=== PATIENT | male | born 1945 | race Caucasian/White ===

== ENCOUNTER 2017-07-17 06:46 | Inpatient (IN) | payer MEDICARE, BC ==
--- NOTE | 2017-07-04 15:53 | HP ---
HISTORY AND PHYSICAL: DATE OF SURGERY: 07/17/17 SURGEON: Susu Mullins MD * (DICTATED BY FRANCISCO MANNING) PROCEDURE: Left total knee arthroplasty. CHIEF COMPLAINT: Left knee pain. HISTORY OF PRESENT ILLNESS: Mr. Tracy is a 71-year-old gentleman with continued complaints of left knee pain secondary to advanced osteoarthritis. He has failed conservative management and has elected to proceed with a left total knee arthroplasty, which is scheduled for 07/17/[address] Mullins. PAST MEDICAL HISTORY: 1. Coronary artery disease. 2. Hypertension. 3. Cardiac arrhythmia. 4. History of DVT with positive lupus anticoagulant drug test. 5. High cholesterol. 6. Sleep apnea. 7. Basal cell carcinoma. PAST SURGICAL HISTORY: 1. Left total hip arthroplasty. 2. Left knee arthroscopy. 3. Cardiac stents. 4. Cardiac ablation. 5. Appendectomy. CURRENT MEDICATIONS: 1. Lipitor. 2. Multivitamin. 3. Toprol. 4. Ramipril. 5. Uroxatral. 6. Saw palmetto. 7. Aspirin. 8. Hydroxyzine. 9. Coumadin. 10. Norvasc. 11. [place]-3. ALLERGIES: No known drug allergies. FAMILY HISTORY: Hypertension and heart disease. SOCIAL HISTORY: He is a 71-year-old gentleman who lives with his . He does not smoke, use drugs, or alcohol. REVIEW OF SYSTEMS: A complete 14-point review of systems is reviewed with the patient, is positive for history of 2 prior DVTs. PHYSICAL EXAMINATION GENERAL: He is well developed, well nourished, in no acute distress. VITAL SIGNS: He stands 6 feet 3 inches tall, weighs 290 pounds. His blood pressure is 150/76, his heart rate is 44. HEENT: Normocephalic, atraumatic. NECK: Supple. No palpable lymph nodes. PULMONARY: Lungs are clear to auscultation bilaterally. CARDIO: Regular rate and rhythm. Strong S1, S2. ABDOMEN: Soft, nontender, nondistended. NEUROLOGIC: Alert and oriented x3. Cranial nerves II through XII are intact. MUSCULOSKELETAL: Left lower extremity, skin is intact. There are no open wounds or abrasions. 10 to 120 degrees flexion with patellofemoral crepitus. 2 + dorsalis pedis pulses. Lower extremity muscle strengths are intact at 5/5. He has intact sensation. ASSESSMENT AND PLAN: Mr. Tracy is a 71-year-old gentleman with complaints of left knee pain secondary to advanced osteoarthritis. He has failed conservative management and has elected to proceed with a left total knee arthroplasty, which is scheduled for 07/17/[address] Mullins discussed the risks and the benefits of the surgery at today's visit and all of his questions were answered. He is currently on 5 mg of Coumadin daily. He will stop this a week prior to the surgery and bridge with Lovenox 30 mg subcu daily up until 24 hours prior to the surgery. Percocet and Colace were sent to his pharmacy for postoperative pain control. He will follow up with Dr. Mullins 2 weeks after the surgery. FRANCISCO MANNING [id number]/[facility] #: [id number] MTDD
[~2017-07-17 06:46] MED LIST: Buffered Lidocaine 0.9% SYRIN* 5 ML/SYR SYRINGE INTRADERM ONE; Gabapentin CAP(*) 300 MG PO ONE
[2017-07-17] MEDS ORDERED: Gabapentin CAP(*) 300 MG ONE (07:08)
[2017-07-17] MEDS ORDERED: ceFAZolin 2 GM PREMIX (*) 50 ML IVPB ONE (07:08)
[2017-07-17] MEDS ORDERED: Bupivacaine 0.5% SDV PF* 30 ML VIAL ONE ×2 (07:14→08:31)
[2017-07-17] MEDS ORDERED: ceFAZolin 1 GM* X ONE DOSE IVPB ×2 (07:30)
[2017-07-17] MEDS ORDERED: Midazolam* 1 MG/ML 5 ML VIAL (5 MG) ONE (08:08)
[2017-07-17] MEDS ORDERED: fentaNYL* 50 MCG/ML 2 ML VIAL (100 MCG VIAL) ONE (08:08)
[2017-07-17] MEDS ORDERED: Sodium Bicarbonate 8.4% SYR* 10 ML SYRINGE ONE (08:12)
[2017-07-17] MEDS ORDERED: Naloxone* 0.4 MG/ML 1 ML VIAL IV PRN (08:30)
[2017-07-17] MEDS ORDERED: DiMENhydriNATE IV* 50 MG/ML VIAL IV PUSH PRN ×2 (08:30→09:12)
[2017-07-17] MEDS ORDERED: Lidocaine 2% EPI 1:200000 MPF* 20 ML VIAL ONE (08:31)
[2017-07-17] MEDS ORDERED: Morphine PF AMP (0.5MG/ML)* 5 MG/10 ML AMP ONE (08:31)
[2017-07-17] MEDS ORDERED: Midazolam* 1 MG/ML 10 ML VIAL (10 MG) ONE (09:03)
[2017-07-17] MEDS ORDERED: Ondansetron INJ* 2 MG/ML VIAL IV PRN (09:12)
[2017-07-17] MEDS ORDERED: fentaNYL* 50 MCG/ML 2 ML VIAL (100 MCG VIAL) IV PRN (09:12)
[2017-07-17] MEDS ORDERED: HYDROmorphone INJ* 1 MG/ML CARPUJECT SYRINGE IV PRN (09:12)
[2017-07-17] MEDS ORDERED: Polyethylene Glycol 3350* 17 GM PACKET PO PRN (11:13)
[2017-07-17] MEDS ORDERED: Acetaminophen TAB* 325 MG PO PRN (11:13)
[2017-07-17] MEDS ORDERED: Bisacodyl SUPP* 10 MG SUPP PR PRN (11:13)
[2017-07-17] MEDS ORDERED: Magnesium Hydroxide LIQ* 30 ML UDC PO PRN (11:13)
--- NOTE | 2017-07-17 12:28 | RAD ---
HISTORY: Status post left knee arthroplasty COMPARISONS: April 30, 2017 VIEWS: 2, Frontal and lateral views of the left knee FINDINGS: BONE DENSITY: Normal. BONES: The patient is status post left knee arthroplasty. There is no hardware failure or osteolysis. JOINTS: The patient is status post left knee arthroplasty. ALIGNMENT: There is no dislocation. SOFT TISSUES: There is postsurgical change to the soft tissues OTHER FINDINGS: None. IMPRESSION: STATUS POST LEFT KNEE ARTHROPLASTY
[2017-07-17 13:10] LABS: BUN/Creatinine Ratio 10.2 (8-20); Calcium 8.4 mg/dL (8.6-10.3); EGFR African American 43.1 (>60); EGFR Non-African American 33.5 (>60); Magnesium 1.8 mg/dL (1.9-2.7); Potassium 4.5 mmol/L (3.5-5.0)
[2017-07-17] MEDS ORDERED: Magnesium Sulfate 2 GM IV* 2 GM/50 ML BAG IVPB ONE (13:24)
[2017-07-17] MEDS: oxyCODONE/Acetamin 5/325 MG* TAB PO PRN ×2 (16:12→22:29)
[2017-07-17] MEDS: ceFAZolin 1 GM VIAL(*) 1 GM in NS 0.9% 50 ML* 50 ML IVPB SCH ×2 (16:13→23:58)
[2017-07-17] MEDS: Metoprolol Succinate XL TAB* 100 MG PO SCH (16:51)
[2017-07-17] MEDS ORDERED: Warfarin TAB(*) 10 MG PO ONE (17:00)
--- NOTE | 2017-07-17 17:56 | CONS ---
CC: KAYKAY Titus; Dr. Mullins* MEDICAL CONSULTATION REPORT: DATE OF CONSULT: 07/17/17 PRIMARY CARE PROVIDER: KAYKAY Titus. PRIMARY AIRCRAFT SERVICER: Dr. Knight. REQUESTING PROVIDER: Dr. Susu Mullins. CONSULTING PROVIDER: FRANCISCO Wade SUPERVISING PHYSICIAN: Dr. Mayelin Bustamante. CHIEF COMPLAINT: Status post left total knee arthroplasty with hospitalist group asked for medical consultation. 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 Mullins earlier today. Hospitalist group was asked to consult for medical comanagement. The patient was seen by both his primary care provider and surgical services assistant prior to today's procedure. Dr. Knight, Cardiology, recommended a repeat nuclear stress testing prior to surgery, which was completed. Stress test was read by Radiology to be a high risk study with apical and septal infarct with lizy- infarct ischemia. Images were reviewed by Dr. Knight who felt that they were similar to his prior stress test and known area of infarct and did not recommend any changes to medical management or repeat cardiac catheterization prior to procedure. The patient is chronically anticoagulated on Coumadin for a history of recurrent DVTs. His first DVT was associated with a long car trip and his second DVT was in 2012 after a hip surgery. He has been anticoagulated with Coumadin since and has known lupus anticoagulant antibody placing him at high risk for future DVTs. The patient has held his Coumadin for approximately a week prior to surgery. INR this morning was 0.9. He did receive Lovenox but in prophylactic dosings at 30 mg once daily as a form of bridging with his last dose being Sunday evening, which was just greater than 24 hours preoperatively. The patient states that he took his ramipril this evening. His takes his metoprolol and amlodipine in the evenings and took those yesterday evening. He reports that he is compliant with CPAP at home and denies any recent illness. He has had a significant decline in exercise tolerance over the last several months but relates this to limitations from his knee pain and not limitation secondary to chest pain or shortness of breath. The patient's evaluation in the recovery period, the patient denies any chest pain, shortness of breath, abdominal pain, nausea, or vomiting. He has no surgical site pain and underwent spinal anesthesia. PAST MEDICAL HISTORY: 1. Stage 3 chronic kidney disease. 2. Recurrent DVTs with positive lupus anticoagulant antibody. 3. Coronary artery disease, status post PCI to the LAD in 2012. 4. Hyperlipidemia. 5. Obstructive sleep apnea, compliant with CPAP. 6. Obesity with a BMI of 36. 7. History of AFib, status post cardioversion several years ago and has maintained a sinus rhythm since. PAST SURGICAL HISTORY: 1. Left total hip arthroplasty. 2. Left knee arthroscopy. 3. PCI in 2012. 4. Cardioversion in 2008. 5. Appendectomy. HOME MEDICATIONS: 1. Uroxatral 10 mg extended release p.o. daily. 2. Aspirin 81 mg p.o. daily. 3. Lipitor 40 mg p.o. daily. 4. Lovenox 30 mg subcu daily ending 07/15/17. 5. Metoprolol succinate 50 mg p.o. each evening. 6. Multivitamin 1 tablet p.o. daily. 7. Fish oil 600 mg p.o. daily. 8. Ramipril 10 mg p.o. daily. 9. Amlodipine 5 mg p.o. daily. 10. Hydroxyzine 25 mg p.o. at bedtime. SOCIAL HISTORY: The patient lives at home with his . No smoking history. Regular alcohol consumption. REVIEW OF SYSTEMS: As noted above in HPI. All other systems reviewed and otherwise negative. PHYSICAL EXAMINATION: Most recent vitals, temperature 97.2 degrees Fahrenheit, pulse 67 beats per minute, respiratory rate 18 per minute, oxygen saturation 93 % on room air, blood pressure 120/68 mmHg. General: This is a very pleasant, elderly gentleman who is lying comfortably in the recovery area and in no acute distress. HEENT: Head is normocephalic, atraumatic. Mucous membranes are pink and moist. Cardiovascular: Heart has a regular rate and rhythm without murmurs , rubs, or gallops. Respiratory: Lungs are clear to auscultation. Abdomen: Soft and nontender to palpation. Extremities: No right lower extremity edema. Left lower extremity is wrapped in a postsurgical dressing that is clear and intact. Psych: The patient is alert and appropriately oriented. Slightly lethargic. Skin: Limited exam shows no concerning rashes or lesions. LABORATORY EVALUATION: Labs from 06/19/17 including a CBC and comprehensive metabolic panel were reviewed. CBC was within normal limits with a hemoglobin of 14.9 g/dL. Metabolic panel showed BUN of 31 and creatinine of 2.23, both of which are slightly above his baseline giving him estimated GFR of just less than 30. INR from this morning of 0.91. Repeat basic metabolic panel performed postoperatively shows an improved BUN down to 20, creatinine 1.97 with an estimated GFR of 33.5 and creatinine clearance of 62.5. Electrolytes are otherwise within normal limits with the exception of magnesium, which is slightly low at 1.8. IMAGIN. Nuclear stress test from earlier this month is read as a high risk study with apical and septal infarct and lizy-infarct ischemia. 2. Echocardiogram from 2014 shows an EF of 50% to 55%. 3. Cardiac cath from 2012 showed critical stenosis of the LAD, which was stented with a drug-eluting stent at that time. 4. Chest x-ray shows no acute process. 5. Preop EKG shows bigeminy. 6. Bedside telemetry monitoring demonstrates frequent PVCs. ASSESSMENT AND PLAN: This is a 71-year-old gentleman who underwent elective left total knee arthroplasty with Dr. Mullins earlier today and hospitalist group has been asked to comanage chronic medical problems, which include stage 3 chronic kidney disease, recurrent deep venous thrombosis with lupus anticoagulant antibody, coronary artery disease, hypertension, obstructive sleep apnea, obesity, and a remote history of atrial fibrillation. The patient is chronically anticoagulated due to his history of deep venous thrombosis with Coumadin, which has been held preoperatively. 1. Status post left total knee arthroplasty - postoperative management will be deferred to orthopedic surgery group. Please see discussion below for DVT prophylaxis recommendations. 2. Recurrent deep venous thrombosis with lupus anticoagulant antibody - this patient is at high risk for recurrent deep venous thrombosis postoperatively. He is chronically anticoagulated with Coumadin, which has been interrupted for a week now and INR has returned to normal at 0.9 measured this morning. He is obese, but below maximum recommended weight based dosing. His renal function preoperatively was worse than baseline, but repeat this morning shows estimated GFR of greater than 30 and a creatinine clearance of greater than 60, and for these reasons, would be eligible for full dose Lovenox therapy as a bridge back to Coumadin and this would be the recommended course of action for this patient. Specifically, we would recommend resuming Lovenox at a dose of 130 mg twice daily on postoperative day 1 or when determined to be appropriate by Orthopedic Surgery in conjunction with restarting his Coumadin. 3. Frequent premature ventricular contractions - the patient is noted to have numerous premature ventricular contractions on telemetry monitoring while examined in PACU. A basic metabolic panel and magnesium were drawn and reviewed. He is slightly hypomagnesemic and will be bolused with 2 g at this time. He is otherwise asymptomatic and recommend giving him his usual metoprolol this evening. 4. Coronary artery disease - the patient had an LAD stent in 2012, chronically followed by Dr. Knight and the patient has been asymptomatic from a cardiac perspective for quite some time. His preop stress test was read as high risk by Radiology but reviewed by Cardiology, felt that it was appropriate to proceed with his planned knee replacement without need to undergo cardiac catheterization prior. We will plan to continue with his medical management. 5. Obstructive sleep apnea - the patient is compliant with CPAP at home. He states that he had used nasal cannula after his last surgery and felt that he did well with that and would prefer not to use CPAP postoperatively. I explained to him that the postoperative period is the most critical in terms of respiratory depression and complications from obstructive sleep apnea and CPAP would be recommended as is his typical treatment. This has been ordered for him. 6. Obesity with a BMI of 36. 7. Hyperlipidemia. 8. Code status: The patient is full code. 9. Healthcare proxy is his . 10. DVT prophylaxis per Orthopedic Surgery, discussion noted above. FRANCISCO WADE [id number]/[facility] #: [id number] NATALIE
--- NOTE | 2017-07-17 18:11 | PN ---
Hospitalist Progress Note Discussed anticoagulation recommendations in more detail with Dr Mullins. She has concerns about hematoma formation with FD Lovenox. Discussed the idea of "intermediate dosing" outlined by UTD under anticoagulation bridging for patients with a need for bridging but the bleeding concern is higher. Recommended intermediate dosing would be 40mg SQ bid. Dr Mullins was in agreement with that dosing protocol. Coumadin has been restarted and INR will be monitored daily.
[2017-07-17] MEDS: Atorvastatin* 40 MG TAB PO SCH (21:12)
[2017-07-17] MEDS: Docusate CAP* 100 MG PO SCH (21:12)
[2017-07-17] MEDS: hydrOXYzine HCL TAB* 25 MG PO SCH (21:12)
[2017-07-18] MEDS ORDERED: diPHENhydraMINE IV* 50 MG/ML 1 ml VIAL (BENADRYL) IV PRN (00:30)
[2017-07-18] MEDS ORDERED: Morphine INJ* 2 MG/ML 1 ML CARPUJECT IV PRN (00:30)
[2017-07-18] MEDS ORDERED: Ondansetron TAB* 4 MG PO PRN (00:30)
[2017-07-18 05:12] LABS: Hematocrit 34 % (42-52); Hemoglobin 11.4 g/dl (14.0-18.0)
--- NOTE | 2017-07-18 05:28 | OP ---
OPERATIVE NOTE: DATE OF OPERATION: 07/17/17 DATE OF : 41 ATTENDING SURGEON: Susu Mullins MD MANAGER MARITIME: FRANCISCO Lema Ms. did help throughout the procedure with preparation of the leg, wound retraction, manipulation of the knee and wound closure. ANESTHESIOLOGIST: David Montoya MD ANESTHESIA TYPE: Spinal. PRE-OP DIAGNOSIS: Severe degenerative osteoarthritis of the left knee joint. POST-OP DIAGNOSIS: Severe degenerative osteoarthritis of the left knee joint. PROCEDURE PERFORMED: Left total knee arthroplasty. TOURNIQUET TIME: 54 minutes. COMPLICATIONS: None. ESTIMATED BLOOD LOSS: 100 cc. SPECIMEN: Bone and cartilage from the left knee joint, sent to pathology. HARDWARE USED: A cemented Her and Nephew total knee arthroplasty hardware. Two packages of Simplex bone cement were used. For the femur, a size 8 left posterior stabilized Legion Oxinium femoral component. For the tibia, a size 7 left tibial baseplate. For the insert, a 9 mm posterior stabilized articular insert. For the patella, a 41-mm 3-peg all poly patella. BRIEF HISTORY/ INDICATIONS: Mr. Tracy is a 71-year-old gentleman with years of severe left knee pain. He failed conservative treatment with antiinflammatories , pain medication, intraarticular injections and physical therapy. Due to continued pain and decreased quality of life, he elected to undergo left total knee arthroplasty. Informed consent was obtained from the patient. He understood the risks of the surgery, included but not limited to bleeding, infection, damage to nearby structures, continued pain, need for further surgery , intraoperative fracture, nerve palsy, hardware failure or loosening, knee stiffness, loss of motion, stroke, heart attack, blood clot and . He wished to proceed. INTRAOPERATIVE FINDINGS: Intraoperatively, the patient had tri-compartmental full thickness loss of cartilage. DESCRIPTION OF PROCEDURE: Mr. Tracy was identified in the preanesthesia unit. His left lower extremity was marked as the correct operative site. Informed consent was signed and placed in the chart. The patient was taken to the operating room and placed under spinal anesthesia. A Tellez catheter was placed. Tourniquet was placed on the left thigh. Left lower extremity was prepped and draped in the usual sterile fashion. Preop time-out was made to correctly identify the patient's side and site. Appropriate perioperative antibiotics were given within 1 hours of incision. Tourniquet was inflated and total tourniquet time for this procedure was 54 minutes. A 15-cm midline incision was made with a 10 blade and carried down to the extensor mechanism. A new 10 blade was used to make a standard medial parapatellar arthrotomy. Patella was subluxed laterally. Electrocautery was used to subperiosteally elevate soft tissue off the superomedial tibia to the midsagittal plain. The knee was flexed up. Anterior horn with lateral meniscus and ACL were sharply released. A drill was used to enter the distal femur. Intramedullary distal femoral cutting guide was pinned into proper position. An oscillating saw was used to make the appropriate distal femoral cut. Next, the external rotation guide was pinned on the distal femur. The distal femur was sized to a size 8. Size 8 multi-cutting jig was pinned on the distal femur. The oscillating saw was used to make the appropriate chamfer cuts. The PCL was completely released. The tibia was subluxed anteriorly. Extramedullary tibial cutting guide was pinned on the proximal tibia. The oscillating saw was used to make the appropriate proximal tibial cut. The bone was carefully removed. The knee was brought into full extension. A spacer block was placed with the knee in full extension. There was good medial and lateral ligamentous balancing. Flexion and extension gaps were well balanced. The knee was flexed up. Lamina kids activities coach was placed both medially and laterally. Any remaining meniscus was carefully removed using electrocautery. A curved osteotome was used to remove posterior osteophytes. A tibial tray and drop zahira were placed and once again confirmed satisfactory proximal tibial cut. This was confirmed. A size 8 left femoral trial was impacted on to the distal femur and had good fit. The box for the posterior stabilized implant was prepared using a reamer and box cut osteotome. Trial size 7 tibial tray with a 9-mm insert trial was placed. The knee was taken through range of motion and had full extension to 130 degrees of flexion. There was good patellofemoral tracking. The patella was everted. A 9 mm of patellar bone and cartilage were carefully removed with an oscillating saw. The patella was sized to a size 41. Size 41 patella was chosen. The 3 peg holes were drilled through the size 41 guide. The trial 41 patella was placed. The knee was taken through a range of motion. There was satisfactory patellofemoral tracking. All trials were carefully removed. The tibia was subluxed anteriorly and sized to a size 7. The proximal tibia was prepared using the size 7 keel punch. All bony cut surfaces were copiously irrigated with sterile saline and dried. The final implants were cemented into place starting with the tibia followed by the femur and last the last patella. A 9 mm insert trial was placed and the knee was brought into full extension. Tourniquet was turned down at 54 minutes. The cement was fully cured. The knee was copiously irrigated with sterile saline. Once the cement had fully cured, the insert trial was removed. Any excess cement was carefully removed from around the hardware and capsule. Electrocautery was used to obtain meticulous hemostasis. Final inset chosen was a 9 mm posterior stabilized insert. This was locked into position on the tibial tray. Stability of the insert was checked and rechecked and noted to be stable. The extensor mechanism was closed over a medium Hemovac drain using interrupted #1 Vicryls. The rest of the incision was closed in a layered fashion using 0 and 2-0 Vicryls. The skin was closed using running 3-0 nylon suture. Sterile Xeroform, 4x4's and Webril were placed over the incision. Yony wrap and cold pack were placed over this. The patient's anesthesia was reversed without difficulty. He was taken to the PACU in stable condition. Intended weightbearing will be weightbearing as tolerated. Intended DVT prophylaxis will be Coumadin with the Lovenox bridge. [id number]/[facility] #: [id number] [facility]
[2017-07-18 05:30] LABS: BUN/Creatinine Ratio 11.9 (8-20); Calcium 8.4 mg/dL (8.6-10.3); EGFR African American 42.1 (>60); EGFR Non-African American 32.7 (>60); Potassium 4.6 mmol/L (3.5-5.0)
[2017-07-18] MEDS: oxyCODONE/Acetamin 5/325 MG* TAB PO PRN ×4 (06:01→22:05)
[2017-07-18] MEDS: ceFAZolin 1 GM VIAL(*) 1 GM in NS 0.9% 50 ML* 50 ML IVPB SCH (07:48)
[2017-07-18] MEDS: Enoxaparin(*) 40 MG/0.4 ML SYR SUBCUT SCH ×2 (07:48→22:05)
[2017-07-18] MEDS: amLODIPine TAB* 5 MG PO SCH (07:48)
[2017-07-18] MEDS: oxyCODONE TAB* 5 MG TAB PO PRN ×2 (07:48→12:41)
[2017-07-18] MEDS: Prenatal Vitamin TAB PO SCH (07:48)
[2017-07-18] MEDS: Docusate CAP* 100 MG PO SCH ×2 (07:49→22:05)
[2017-07-18] MEDS: Alfuzosin ER (NF) 10 MG TAB.ER PO SCH (07:49)
[2017-07-18] MEDS ORDERED: Ondansetron INJ* 2 MG/ML VIAL IV PRN (08:30)
[2017-07-18] MEDS ORDERED: Enoxaparin(*) 100 MG/ML SYR SUBCUT SCH (09:00)
[2017-07-18] MEDS ORDERED: Ramipril CAP* 5 MG PO SCH (09:00)
--- NOTE | 2017-07-18 11:52 | PN ---
Progress Note - Progress Note Date of Service: 07/18/17 SOAP: Subjective: []Patient seen at bedside. Pain well managed, hoping to get some rest this afternoon. Denies SOB, CP or dizziness. Objective: [] Vital Signs Temp 97.7 F 07/18/17 07:20 Pulse 51 07/18/17 07:20 Resp 18 07/18/17 10:23 BP 127/47 07/18/17 07:20 Pulse Ox 96 07/18/17 07:20 Intake & Output 07/17/17 07/18/17 07/18/17 18:59 06:59 18:59 Intake Total 3750 2043 240 Output Total 800 1475 0 Balance 2950 568 240 Weight 291 lb Intake: IV Fluids 2550 893 3G CEFAZOLIN 100 LR 2450 893 Oral 1200 1150 240 Output: Tellez 800 1475 0 Other: Estimated Blood Loss 200 Comment Laboratory Results - last 24 hr 07/17/17 07/18/17 07/18/17 12:30 04:48 04:48 Hgb 11.4 L Hct 34 L INR (Anticoag Therapy) 0.99 Sodium 138 Potassium 4.5 Chloride 110 Carbon Dioxide 24 Anion Gap 4 BUN 20 Creatinine 1.97 H Est GFR ( Amer) 43.1 Est GFR (Non-Af Amer) 33.5 BUN/Creatinine Ratio 10.2 Glucose 94 Calcium 8.4 L Magnesium 1.8 L 07/18/17 04:48 Hgb Hct INR (Anticoag Therapy) Sodium 135 Potassium 4.6 Chloride 105 Carbon Dioxide 26 Anion Gap 4 BUN 24 Creatinine 2.01 H Est GFR ( Amer) 42.1 Est GFR (Non-Af Amer) 32.7 BUN/Creatinine Ratio 11.9 Glucose 116 H Calcium 8.4 L Magnesium Left knee CONSUELO is dry and intact, hemovac drain discontinued this am by Dr. Mullins , no complications, tip intact calf NT +DF/PF left ankle sensation intact distally Assessment: []s/p Left total knee arthroplasty POD #1 Plan: []PT/OT WBAT LLE Coumadin with Lovenox bridge- 8 mg today Possible discharge home
--- NOTE | 2017-07-18 15:25 | PN ---
Subjective Date of Service: 07/18/17 Interval History: POD#1. Patient reports tolerable pain, no n/v/d. No c/o CP, SOB or palpitations. Objective Active Medications: Acetaminophen (Tylenol Tab*) 650 mg PO Q4H PRN PRN Reason: PAIN OR TEMPERATURE Alfuzosin HCl (Uroxatral (Nf)) 10 mg PO QAM [facility] Last Admin: 07/18/17 07:49 Dose: Not Given Amlodipine Besylate (Norvasc Tab*) 5 mg PO QAM [facility] Last Admin: 07/18/17 07:48 Dose: 5 mg Atorvastatin Calcium (Lipitor*) 40 mg PO 2100 [facility] Last Admin: 07/17/17 21:12 Dose: 40 mg Bisacodyl (Dulcolax Supp*) 10 mg NC DAILY PRN PRN Reason: constipation Diphenhydramine HCl (Benadryl Iv*) 12.5 mg IV Q6H PRN PRN Reason: PRURITIS Docusate Sodium (Colace Cap*) 100 mg PO BID [facility] Last Admin: 07/18/17 07:49 Dose: 100 mg Enoxaparin Sodium (Lovenox(*)) 40 mg SUBCUT Q12H [facility] Last Admin: 07/18/17 07:48 Dose: 40 mg Hydroxyzine HCl (Atarax Tab*) 25 mg PO BEDTIME [facility] Last Admin: 07/17/17 21:12 Dose: 25 mg Lactated Ringer's (Lactated Ringers 1000 Ml Bag*) 1,000 mls @ 100 mls/hr IV PER RATE [facility] Last Admin: 07/18/17 00:03 Dose: 100 mls/hr Lactulose (Lactulose*) 30 ml PO Q6H PRN PRN Reason: constipation Magnesium Hydroxide (Milk Of Magnesia Liq*) 30 ml PO Q6H PRN PRN Reason: constipation Metoprolol Succinate (Toprol Xl Tab*) 50 mg PO QPM [facility] Last Admin: 07/17/17 16:51 Dose: 50 mg Morphine Sulfate (Morphine Inj (Syringe)*) 2 mg IV Q2H PRN PRN Reason: PAIN Multivitamins ( Vitamin Tab*) 1 tab PO QAM [facility] Last Admin: 07/18/17 07:48 Dose: 1 tab Ondansetron HCl (Zofran Inj*) 4 mg IV Q6H PRN PRN Reason: nausea Ondansetron HCl (Zofran Tab*) 4 mg PO Q6H PRN PRN Reason: NAUSEA Oxycodone HCl (Roxycodone Tab*) 10 mg PO Q4H PRN PRN Reason: SEVERE PAIN Last Admin: 07/18/17 12:41 Dose: 10 mg Oxycodone/Acetaminophen (Percocet 5/325 Tab*) 1 tab PO Q3H PRN PRN Reason: PAIN - MODERATE Last Admin: 07/18/17 06:01 Dose: 1 tab Oxycodone/Acetaminophen (Percocet 5/325 Tab*) 2 tab PO Q3H PRN PRN Reason: PAIN - MODERATE Last Admin: 07/18/17 10:23 Dose: 2 tab Pharmacy Profile Note (Coumadin Daily Reminder*) 1 note FOLLOW UP 1700 [facility] Last Admin: 07/17/17 16:51 Dose: 1 note Polyethylene Glycol/Electrolytes (Miralax*) 17 gm PO DAILY PRN PRN Reason: Constipation Warfarin Sodium (Coumadin Tab(*)) 8 mg PO ONCE@1700 ONE PRN Reason: Protocol Stop: 07/18/17 17:01 Vital Signs: Temp Pulse Resp BP Pulse Ox 97.7 F 51 18 127/47 96 07/18/17 07:20 07/18/17 07:20 07/18/17 14:37 07/18/17 07:20 07/18/17 07:20 Oxygen Devices in Use Now: Nasal Cannula Appearance: Well appearing gentleman who appears younger than stated age in NAD Respiratory: Symmetrical Chest Expansion and Respiratory Effort, Clear to Auscultation Cardiovascular: NL Sounds; No Murmurs; No JVD, RRR Abdominal: NL Sounds; No Tenderness; No Distention Extremities: No Edema Skin: No Rash or Ulcers, - - L knee in surgical dressing Neurological: Alert and Oriented x 3 Result Diagrams: 07/18/17 04:48 07/18/17 04:48 Assess/Plan/Problems-Billing Assessment: This is a 71 yo male with CKD III, CAD, HLD, SHU, obesity, and h/o recurrent DVTs with positive lupus anticoagulant antibody who is s/p L TKA with Dr Mullins. Hospitalist group has been asked to consult for medical co-management. - Patient Problems (1) Status post total left knee replacement Comment: POD #1 Post op management per ortho (2) Recurrent deep vein thrombosis (DVT) Comment: H/o recurrent DVT with known lupus anticoagulant Ab Chronically anticoagulated with Coumadin which has been interrupted for surgery Coumadin has been resumed Bridging with intermediate dosed Lovenox at 40mg bid (3) CAD (coronary artery disease) Comment: Asx Cont medical management, resume ASA when ok'd by ortho s/p PCI 2012 (4) HLD (hyperlipidemia) Comment: Cont statin (5) SHU (obstructive sleep apnea) Comment: Compliant with CPAP (6) Obesity Comment: BMI 36 (7) Full code status (8) DVT prophylaxis Comment: Lovenox bridging to usual Coumadin Status and Disposition: Discharge per ortho. Hospitalist group will continue to follow along
[2017-07-18] MEDS ORDERED: Warfarin TAB(*) 4 MG PO ONE (17:00)
[2017-07-18] MEDS: Metoprolol Succinate XL TAB* 100 MG PO SCH (17:48)
[2017-07-18] MEDS: hydrOXYzine HCL TAB* 25 MG PO SCH (22:05)
[2017-07-18] MEDS: Atorvastatin* 40 MG TAB PO SCH (22:05)
[2017-07-19] MEDS: oxyCODONE/Acetamin 5/325 MG* TAB PO PRN (05:16)
[2017-07-19 05:43] LABS: Hematocrit 31 % (42-52); Hemoglobin 10.4 g/dl (14.0-18.0)
[2017-07-19 05:44] LABS: Comments Flag Yes
[2017-07-19] MEDS: Docusate CAP* 100 MG PO SCH (08:50)
[2017-07-19] MEDS: Prenatal Vitamin TAB PO SCH (08:51)
[2017-07-19] MEDS: Enoxaparin(*) 40 MG/0.4 ML SYR SUBCUT SCH (08:51)
[2017-07-19] MEDS: amLODIPine TAB* 5 MG PO SCH (08:51)
[2017-07-19] MEDS: Alfuzosin ER (NF) 10 MG TAB.ER PO SCH (08:52)
[2017-07-19] MEDS ORDERED: Ramipril CAP* 10 MG PO SCH (09:00)
--- NOTE | 2017-07-19 10:20 | PN ---
Progress Note - Progress Note Date of Service: 07/19/17 SOAP: Subjective: []Patient seen OOB in chair. He is frustrated because he has not been able to sleep dues to noisy floor at night. His pain is tolerable overall in the left knee. He wishes to be discharged home this morning. Objective: [] Vital Signs Temp 98.1 F 07/19/17 04:16 Pulse 70 07/19/17 04:16 Resp 16 07/19/17 07:16 BP 128/60 07/19/17 04:16 Pulse Ox 96 07/19/17 04:16 Intake & Output 07/18/17 07/19/17 07/19/17 18:59 06:59 18:59 Intake Total 1514 2420 200 Output Total 150 1300 200 Balance 1364 1120 0 Intake: IV Fluids 980 LR 980 IVPB 974 LR 866 abx 108 Oral 540 1440 200 Output: Urine 150 1300 200 Tellez 0 Other: # Bowel Movements 0 Laboratory Results - last 24 hr 07/19/17 07/19/17 05:26 05:26 Hgb 10.4 L Hct 31 L INR (Anticoag Therapy) 1.26 H Left knee dressings changed by Dr. Mullins this am, C/D/I +DF/PF left ankle calf NT neuro intact distally Assessment: []s/p Left total knee arthroplasty POD #2 Plan: []PT this am 6 mg Coumadin today before discharge follow up with Dr. Mullins as scheduled
[2017-07-19 11:07] VITALS: BP 129/57
[2017-07-19] MEDS ORDERED: Warfarin TAB(*) 6 MG PO SCH (17:00)
--- NOTE | 2017-07-20 00:54 | DS ---
AMENDED REPORT NOW INCLUDES COSIGNER DESIGNATION - ESIGNED BEFORE ADJUSTMENT DISCHARGE SUMMARY: DATE OF ADMISSION: 07/17/17 DATE OF DISCHARGE: 07/19/17 ATTENDING PHYSICIAN: Susu Mullins MD * (DICTATED BY FRANCISCO BROOKS) ADMISSION DIAGNOSIS: Severe degenerative osteoarthritis, left knee joint. DISCHARGE DIAGNOSIS: Severe degenerative osteoarthritis, left knee joint. SURGERY PERFORMED: Left total knee arthroplasty. HOSPITAL COURSE: The patient is a 71-year-old male with years of severe left knee pain. He failed conservative treatment with anti-inflammatories, pain medication, and intraarticular cortisone injections as well as physical therapy. Due to his ongoing pain, decreased activities of daily living, he elected to proceed with left total knee arthroplasty and was taken to the operating room under the care of Dr. Susu Mullins on the date of 07/17/17. He tolerated the procedure well and left the operating room in stable condition. Postoperatively, he progressed well with his physical therapy and occupational therapy goals, bearing weight as tolerated on the left lower extremity. He had no postoperative complications and was found to be stable medically and orthopedically for discharge to home on the date of 07/19/17. CONDITION ON DISCHARGE: Temperature 98.7, pulse 79, respiratory rate 16, O2 sats 96% on room air, blood pressure 129/57. Examination of his left knee, incision was benign. His calf was soft and nontender. He had active dorsiflexion and plantar flexion of the left ankle. PLAN: Discharge to home, continuing to bear weight as tolerated on the left lower extremity. He will continue with his PT/OT exercises, bearing weight as tolerated. He will continue with Coumadin for postoperative DVT prophylaxis. He was dosed with 6 mg of Coumadin on , 07/19/17 before discharge. He was instructed to take 4 mg of Coumadin on 07/20/17, 2 mg of Coumadin on 07/21/17, and 2 mg of Coumadin on 07/22/17. He will have a repeat INR draw as an outpatient as he declines visiting home nursing services. The results will be reviewed and dosages to follow from the office. He is scheduled to follow up with Dr. Mullins in the office in roughly 10 to 14 days. He will call if there is any change in his orthopedic condition including increased swelling, drainage, increased knee pain, noted increased calf pain, fever, chills. FRANCISCO BROOKS [id number]/[facility] #: [id number] MTDD
== END 2017-07-19 13:00 | disposition home or self-care (01) | DRG 470 ==
LOC: AA 06:46 → SSU 13:34
PROVIDERS: ADMIT Orthopaedic Surgery Adult Reconstructive Orthopaedic Surgery; ATTEND Orthopaedic Surgery Adult Reconstructive Orthopaedic Surgery
PROC: 0SRD0J9 Replacement of Left Knee Joint with Synthetic Substitute, Cemented, Open Approach (ICD-10-PCS; principal; 2017-07-17 08:30)
DX: M17.12 Unilateral primary osteoarthritis, left knee (principal); D68.62 Lupus anticoagulant syndrome; I48.91 Unspecified atrial fibrillation; I25.10 Atherosclerotic heart disease of native coronary artery without angina pectoris; Z96.642 Presence of left artificial hip joint; E66.9 Obesity, unspecified; E78.5 Hyperlipidemia, unspecified; G47.33 Obstructive sleep apnea (adult) (pediatric); I12.9 Hypertensive chronic kidney disease with stage 1 through stage 4 chronic kidney disease, or unspecified chronic kidney disease; I49.3 Ventricular premature depolarization; N40.0 Benign prostatic hyperplasia without lower urinary tract symptoms; M48.00 Spinal stenosis, site unspecified; M25.762 Osteophyte, left knee; Z86.718 Personal history of other venous thrombosis and embolism; Z85.828 Personal history of other malignant neoplasm of skin; Z95.5 Presence of coronary angioplasty implant and graft; Z82.49 Family history of ischemic heart disease and other diseases of the circulatory system; Z68.36 Body mass index [BMI] 36.0-36.9, adult; Z72.89 Other problems related to lifestyle
CPT/HCPCS: 36415; 80048; 83735; 85014; 85018; 85610; 86850; 86900; 86901; 94760; A9270-GY; C1776; J0690; J1650; J2250; J3010; J3475

== ENCOUNTER 2018-09-03 05:42 | Observation (INO) | payer MEDICARE, BC ==
[~2018-09-03 05:42] MED LIST changes: -Gabapentin CAP(*) 300 MG PO ONE
[2018-09-03] MEDS ORDERED: Famotidine IV* 10 MG/ML 2 ML (20 mg) IV ONE (06:00)
[2018-09-03] MEDS ORDERED: Famotidine IV* 10 MG/ML 2 ML (20 mg) ONE (06:11)
[2018-09-03] MEDS ORDERED: ceFAZolin 2 GM in NS PREMIX(*) 2 GM/100 ML BAG IVPB ONE (06:11)
[2018-09-03] MEDS ORDERED: Lidocain 1% EPI 1:100,000 * 30 ML MDV ONE (06:58)
[2018-09-03] MEDS ORDERED: Thrombin 5,000 UNITS* 1 APPLIC KIT - topical use - TOPICAL ONE (06:58)
[2018-09-03] MEDS ORDERED: Bacitracin IV* 50,000 UNITS INJ ONE (06:59)
[2018-09-03 07:01] LABS: INR 1.04 (0.77-1.02)
[2018-09-03] MEDS ORDERED: ceFAZolin 1 GM ADVAN(*) 1 GM ADDV.VIAL IVPB ONE (07:30)
[2018-09-03] MEDS ORDERED: Midazolam* 1 MG/ML 5 ML VIAL (5 MG) ONE (07:33)
[2018-09-03] MEDS ORDERED: Rocuronium* 10 MG/ML VIAL ONE (07:33)
[2018-09-03] MEDS ORDERED: fentaNYL* 50 MCG/ML 5 ML VIAL (250 MCG VIAL) ONE (07:33)
[2018-09-03] MEDS ORDERED: Succinylcholine* 20 MG/ML 10 ML VIAL ONE (08:17)
[2018-09-03] MEDS ORDERED: Dexamethasone IV* 4 MG/ML 1 ML (4 MG) ONE (08:17)
[2018-09-03] MEDS ORDERED: DiMENhydriNATE IV* 50 MG/ML VIAL ONE (08:17)
[2018-09-03] MEDS ORDERED: Propofol* 10 MG/ML 20 ML BTL IV PUSH ONE (08:17)
[2018-09-03] MEDS ORDERED: Ondansetron INJ* 2 MG/ML VIAL ONE (08:17)
[2018-09-03] MEDS ORDERED: EPHEDrine (Pressors)* 50 MG/ML VIAL ONE (08:17)
[2018-09-03] MEDS ORDERED: Glycopyrrolate IV* 0.2 MG/ML 1 ML VIAL ONE (08:17)
[2018-09-03] MEDS ORDERED: oxyCODONE TAB* 5 MG TAB PO PRN (09:06)
[2018-09-03] MEDS ORDERED: HYDROmorphone INJ1* 1 MG/ML SYRINGE IV PRN (09:06)
[2018-09-03] MEDS ORDERED: Naloxone* 0.4 MG/ML 1 ML VIAL IV PRN (09:06)
[2018-09-03] MEDS ORDERED: Acetaminophen TAB* 325 MG PO PRN ×2 (09:06→09:49)
[2018-09-03] MEDS ORDERED: DiMENhydriNATE IV* 50 MG/ML VIAL IV PUSH PRN (09:06)
[2018-09-03] MEDS ORDERED: Ondansetron INJ* 2 MG/ML VIAL IV PRN (09:49)
[2018-09-03] MEDS ORDERED: HYDROcodone/ACETAMIN 5-325 MG* 1 TAB PO PRN (09:49)
[2018-09-03] MEDS ORDERED: Magnesium Hydroxide LIQ* 30 ML UDC PO PRN (09:49)
[2018-09-03 12:01] LABS: EGFR Non-African American 29.1 (>60)
[2018-09-03] MEDS ORDERED: Magnesium Sulfate 1 GM IV* 1 GM/100 ML BAG IV ONE ×2 (12:55→19:35)
--- NOTE | 2018-09-03 13:35 | PN ---
Hospitalist Progress Note Date of Service: 09/03/18 Called to bedside for runs of VT. Patient since being placed on tele has had several 4-7 beat runs of VT. No symptoms. Denies chest pain, denie sob. Denies lightheadedness, denies loc. Lungs CTA, and Heart sounds s1 s2 RRR, States he wants to know when he can go home. Called cardiology to see patient. Will transfer to ICU for further monitoring and possible intervention. Echo ordered, ekg ordered and troponins.
--- NOTE | 2018-09-03 16:38 | ECHO ---
Patient: MANUEL QUIROGA Rec#: [id number] : 1945 Date: 09/03/2018 Age: 72y Height: 193 cm / 76.0 in Weight: 136.6 kg / 301.1 lbs Sex: M BSA: 2.64 Room#: [facility] Admit Date#: 09/03/2018 Type: Inpatient Referring: Reilly Sorenson NP Reading: Ky Knight MD Aquatics Instructor: Ashanti Weiner RDCS CC: Franco Shields Transthoracic Echocardiogram Indication: Abnormal EKG, ventricular tachycardia BP: 155/79 HR: 74 Rhythm: NSR with PVCs Findings History: CAD, s/p PCI, HLD, HTN, DVT, SHU. Technical Comments: The study is technically limited due to poor parasternal windows. Completed at 1540. Left Ventricle: The left ventricular chamber size is mildly dilated. Mild concentric left ventricular hypertrophy is observed. There is normal left ventricular systolic function. The estimated ejection fraction is 55-60%. Abnormal left ventricular diastolic function is observed. The left ventricular diastolic filling pattern is consistent with pseudonormalization. Left Atrium: The left atrium is mildly dilated. Right Ventricle: Moderator Band present. The right ventricle is mildly dilated. The right ventricular global systolic function is normal. Right Atrium: The right atrium is moderately dilated. Aortic Valve: The aortic valve is trileaflet. The aortic valve leaflets are mildly thickened. Systolic excursion of the aortic valve cusps is reduced. There is a trace of aortic regurgitation. There is mild aortic stenosis. The mean gradient of the aortic valve is 10 mmHg. The peak instantaneous gradient of the aortic valve is 18 mmHg. The aortic valve area, by peak velocities, is calculated at 1.6 cm2. The aortic valve area, by VTI's, is calculated at 1.7 cm2. Mitral Valve: There is mitral annular calcification. The mitral valve leaflets are mildly thickened. There is a trace of mitral regurgitation. There is no evidence of mitral stenosis. Tricuspid Valve: The tricuspid valve leaflets are normal. There is trace tricuspid regurgitation. Unable to estimate the right ventricular systolic pressure. There is no tricuspid stenosis. Pulmonic Valve: The pulmonic valve appears normal. There is a trace pulmonic regurgitation. There is no pulmonic stenosis. Pericardium: There is no significant pericardial effusion. A pericardial fat pad is visualized. Aorta: There is moderate dilatation of the ascending aorta. There is no dilatation of the aortic arch. The aortic root is normal in size. Pulmonary Artery: The main pulmonary artery appears normal. Venous: The inferior vena cava is dilated. There is a greater than 50% respiratory change in the inferior vena cava dimension. Conclusions Mild concentric left ventricular hypertrophy is observed. There is normal left ventricular systolic function. The estimated ejection fraction is 55-60%. The right ventricular global systolic function is normal. There is a trace of aortic regurgitation. There is mild aortic stenosis. The mean gradient of the aortic valve is 10 mmHg. There is a trace of mitral regurgitation. There is trace tricuspid regurgitation. Unable to estimate the right ventricular systolic pressure. There is no significant pericardial effusion. Compared to study of 10/20/15, the LV function is the same. The degree of is new Measurements Name Value Normal Range RVIDd (AP) 2D 4.2 cm (0.9 - 2.6) RVDdMajor (2D) 4.8 cm (2.2 - 4.4) RAd ISD 4CH 6.3 cm (3.4 - 4.9) RA (A4C)W 4.5 cm (2.9 - 4.6) IVSd (2D) 1.2 cm (0.6 - 1) LVPWd (2D) 1.2 cm (0.6 - 1) LVIDd (2D) 5.5 cm (3.6 - 5.4) LVIDs (2D) 4.1 cm - LV FS (2D) 27 % (25 - 45) Aortic Annulus 2.5 cm (1.4 - 2.6) Ao root diameter (2D) 3.4 cm (2.1 - 3.5) Ascending Ao 4.1 cm (2.1 - 3.4) Aortic arch 2.9 cm (1.8 - 3.4) LA dimension (AP) 2D 4.7 cm (2.3 - 3.8) LAd ISD 4CH 6.7 cm (2.9 - 5.3) LA ISD 4CH W 4.9 cm (2.5 - 4.5) Name Value Normal Range LA ESV BP (A/L) index 34 ml/m2 - Name Value Normal Range MV E-wave Vmax 1.22 m/sec - MV deceleration time 165 msec - MV A-wave Vmax 1.2 m/sec - MV E:A ratio 1 ratio - LV septal e' Vmax 0.04 m/sec - LV lateral e' Vmax 0.07 m/sec - LV E:e' septal ratio 30 ratio - LV E:e' lateral ratio 17.14 ratio - Name Value Normal Range AV Vmax 2.1 m/sec - AV VTI 49.9 cm - AV peak gradient 18 mmHg - AV mean gradient 10 mmHg - LVOT diameter 2.1 cm - LVOT Vmax 1 m/sec - LVOT VTI 23.9 cm - LVOT peak gradient 4 mmHg - LVOT mean gradient 2 mmHg - DOI (VTI) 0.48 ratio - GARRICK (continuity Vmax) 1.6 cm2 - GARRICK (continuity VTI) 1.7 cm2 - ALFONSO Vmax 1.2 m/sec - Name Value Normal Range IVC diameter 2.5 cm - Name Value Normal Range PV Vmax 1 m/sec - PV peak gradient 4 mmHg -
[2018-09-03 17:02] LABS: Hematocrit 41 % (42-52); Hemoglobin 13.5 g/dl (14.0-18.0); Mean Corpuscular HGB Conc 33 g/dl (31-36); Mean Corpuscular Hemoglobin 30 pg (27-31); Mean Corpuscular Volume 91 fL (80-94); Mean Platelet Volume 8.2 fL (7.4-10.4); Platelet Count 154 10^3/ul (150-450); Red Cell Distribution Width 15 % (10.5-15); White Blood Count 7.9 10^3/ul (3.5-10.8)
[2018-09-03 17:35] LABS: EGFR Non-African American 28.7 (>60)
[2018-09-03] MEDS ORDERED: Metoprolol Succinate XL TAB* 50 MG PO SCH (18:00)
[2018-09-03] MEDS ORDERED: amLODIPine TAB* 5 MG PO SCH (18:00)
[2018-09-03] MEDS ORDERED: Ramipril CAP* 5 MG PO SCH (18:00)
--- NOTE | 2018-09-03 18:02 | CONS ---
CC: Dr. Shields; Dr. Blanton * CONSULTATION REPORT: DATE OF CONSULT: 09/03/18 PRIMARY CARE PROVIDER: Dr. Shields. ATTENDING PHYSICIAN WHILE IN THE HOSPITAL: Mayelin Bustamante MD (report dictated by Reilly Sorenson NP) REASON FOR MEDICAL CONSULTATION: 1. Evaluation and medical management of comorbid medical problems. 2. Bigeminy. HISTORY OF PRESENT ILLNESS: Mr. Tracy is a 72-year-old male patient that has sought care with Dr. Blanton and his team for worsening back pain. He had been dealing with back pain for some time. It was restricting his activity. He was having neurogenic claudication. He presented to Dr. Blanton's office and it was ultimately felt that the patient would benefit from a lumbar decompressive laminectomy, which he underwent today. It was noted that during his procedure he had episodes of bigeminy. Because of this, we were asked to evaluate in consult. He does have a significant past medical history in the sense that he carries a history of unprovoked DVT in the past, lupus anticoagulant, history of aflutter, CAD, spinal stenosis, arthritis, hypertension, hyperlipidemia, BPH , SHU. He was evaluated in the postoperative setting. He denies having any chest pain or shortness of breath. He denies any palpitations. He denies having any abdominal pain. He states he is not feeling nauseous. He denies having any lower extremity weakness and he denies having any bowel or bladder incontinence. He states that he does feel sore along the incision site from his surgery. He otherwise states he is feeling well, but because of the bigeminy and his complexity, we were asked to evaluate in consult. PAST MEDICAL HISTORY: Significant for: 1. Unprovoked DVT due to lupus anticoagulant. 2. Aflutter. 3. CAD. 4. Spinal stenosis. 5. Osteoarthritis. 6. Hypertension. 7. Hyperlipidemia. 8. BPH. 9. SHU. PAST SURGICAL HISTORY: 1. He has had a left total hip arthroplasty. 2. Appendectomy. 3. Cardiac catheterization x2. 4. Left total knee replacement. 5. He has had a laminectomy done today at L3-4, L4-5. MEDICATIONS: Home meds according to the preop list include: 1. Atarax 1 tablet p.o. at bedtime. 2. Norvasc 2.5 mg p.o. q.p.m. 3. Warfarin 5 mg p.o. daily. 4. Saw palmetto 450 mg p.o. daily. 5. Altace 10 mg daily. 6. Multivitamin 1 tablet daily. 7. Toprol-XL 50 mg at bedtime. 8. Lipitor 40 mg daily. 9. Aspirin 81 mg daily. 10. Alfuzosin 10 mg p.o. q.p.m. ALLERGIES TO MEDICATIONS: Include ASPIRIN and IBUPROFEN. FAMILY HISTORY: His mother had a history of dementia and hypertension. Father had a history of CAD and CHF. SOCIAL HISTORY: He does not smoke, does not drink. Surrogate decision maker is his . REVIEW OF SYSTEMS: There is no documented fever. He denied having any significant weight change. There is no double vision. He denies having any ear discharge. There is no rhinorrhea. He denies having any sore throat. There is no thyroid enlargement. He denied having any chest pain. There is no orthopnea. There is no nocturnal dyspnea. He denies having any abdominal pain. He denies having any nausea. There is no vomiting. There is no dysuria , no frequency, no seizure, no loss of consciousness, no pruritus and no skin ulcerations. Review of 14 systems completed, all others negative. PHYSICAL EXAM: Vital Signs: Blood pressure 152/75, pulse of 64, respirations were 19, O2 sat was 96%, temperature 97.4. General: At this time, Mr. Tracy is a 72- year-old male patient. He is sitting in the hospital bed. He does not appear to be in any acute distress. He appears to be well nourished and well developed. HEENT: Head: Atraumatic and normocephalic. Eyes: EOMs intact. Sclerae anicteric and not pale. Neck was supple. Throat: Oral mucosa appears to be moist. No oropharyngeal erythema. Heart: Sounds S1, S2. He had a regular rate and rhythm. No murmurs, rubs, or gallops. His lungs were clear to auscultation bilaterally. There were no wheezes, rales, or rhonchi. His abdomen was soft. It was flat. It was nontender. Bowel sounds were present. Extremities: Pulses were 2+ throughout. He is moving all 4 extremities with 5/ 5 strength. Neurologically, he is awake, he is alert, he is oriented x3. His tongue is midline. He had no gross focal deficits. His skin was intact with the exception he has an incision to his lumbar spine, which is covered with ABD dressing, which is clean, dry, and intact. DIAGNOSTIC STUDIES/LAB DATA: Labs which are preop: WBC of 4.9, RBC of 5.23, hemoglobin of 15.6, hematocrit of 47, platelet count of 159. INR was 1.04. PTT was 41.5 that was over a year ago. His sodium was 141, potassium of 4.7, chloride of 110, bicarb 23, BUN is 34, creatinine of 2.15, which is near his baseline, glucose 100. Mag pending for today. He had a preop EKG, which showed a sinus bradycardia, rate of 58, no ST elevations or T wave inversions. Chest x-ray showed findings consistent with COPD, no evidence for acute findings. Last echo we have is from 2014, EF of 50% to 55%. Old medical records were reviewed. ASSESSMENT AND PLAN: Mr. Tracy is a 72-year-old male patient coming in to the neurosurgical services today for a laminectomy. We are asked to evaluate in consult and my recommendations at this point are: 1. Status post L3-4, L4-5 laminectomy. I will defer the management to Dr. Blanton and his team. 2. Bigeminy. At this point, I will check a BMP and his mag and a TSH to make sure these are stable and we will replete as necessary. I will place him on telemetry for at least 24 hours, but usually this is a benign rhythm and we can just monitor. It may be secondary to the anesthetics. We will just monitor. 3. History of deep vein thrombosis and lupus anticoagulant. Again, I did read Dr. Shields' notes. He is recommending bridging with Lovenox postoperatively. I do have a call placed out to the neurosurgical services to ask them when there would be the soonest possible time to start full dose Lovenox that would need to be renally dosed for the patient and bridging with Coumadin and then Lovenox will be stopped when his INR was between 2 and 3, but we need to do this in a safe way given the fact he just had lumbar spine surgery. So, again I will defer recommendations to Dr. Blanton and his team. 4. Atrial flutter. Continue his meds as prescribed. We will get him back on his anticoagulation as soon as possible. 5. Spinal stenosis. Follow up with PCP and Dr. Blanton. 6. Arthritis. Follow up with PCP, it is stable. 7. Hypertension. Continue meds as prescribed. 8. Hyperlipidemia. Continue statin therapy. 9. Benign prostatic hypertrophy. Continue with his current medical regimen. 10. Obstructive sleep apnea. I have ordered CPAP. 11. Coronary artery disease. I would recommend getting him back on his aspirin when able, but for now, he is on his beta-jorden and statin therapy. 12. DVT prophylaxis. I will defer to the primary team. 13. Code status. Full code. 14. Fluids, electrolytes, and nutrition. He can have a healthy diet. TIME SPENT: Time spent on the consult was 60 minutes, greater than half that time was spent [id number] with the patient obtaining my history and physical, other half time was spent going over plan of care with the patient and implementing plan of care. I did discuss the plan of care with my attending, Dr. Bustamante, she is in agreement. REILLY SORENSON, KAYKAY [id number]/[facility] #: [id number] NATALIE
[2018-09-03] MEDS ORDERED: hydrOXYzine HCL TAB* 25 MG PO SCH (21:00)
[2018-09-03] MEDS ORDERED: Atorvastatin* 40 MG TAB PO SCH (21:00)
--- NOTE | 2018-09-03 21:29 | CONS ---
CC: Dr. Shields, [facility] * CARDIOLOGY CONSULTATION: DATE OF CONSULT: 09/03/18 INDICATIONS FOR CONSULTATION: Coronary artery disease, nonsustained VT. HISTORY OF PRESENT ILLNESS: The patient is a 72-year-old gentleman with a history of coronary artery disease, history of stenting to his LAD in 2012, also has a history of known 70% stenosis to his mid right coronary artery. The patient underwent a laminectomy today. Postoperatively, he had runs of nonsustained VT. In the recovery area, he had 4 to 5 episodes of 7 beats of nonsustained VT. It was asymptomatic. His EKG was unremarkable. The patient was transported to the ICU. PAST MEDICAL HISTORY: Significant for coronary artery disease as described above, history of paroxysmal atrial flutter, back pain, arthritis. PAST SURGICAL HISTORY: Hip replacement in 2012, knee arthroplasty, cardiac catheterization, atrial flutter ablation. OUTPATIENT MEDICATIONS: 1. Lipitor 40 mg a day. 2. Toprol-XL 50 mg a day. 3. Ramipril 10 mg a day. 4. Hydroxyzine 25 mg daily. 5. Coumadin as directed. 6. Norvasc 5 mg a day. 7. Aspirin 81 mg a day. ALLERGIES: No known drug allergies. SOCIAL HISTORY: He is retired. He denies tobacco or alcohol use. FAMILY HISTORY: Noncontributory. REVIEW OF SYSTEMS: Positive for back pain. Negative for changes in bowel or bladder. Negative for fevers and chills. Other 12-point review is unremarkable. PHYSICAL EXAMINATION: Height is 6 feet 4 inches, weight 295 pounds, temperature is afebrile, blood pressure 130/83, heart rate is 80, respiratory rate is 21, oxygen saturation 93% on room air. Sclerae anicteric. Oropharynx is pink without erythema. Carotids are 2+ without bruits. JVD is normal. Thyroid is normal. Cardiac Exam: S1, S2 without any murmurs, rubs, or gallops. Lungs are clear to auscultation bilaterally. Extremities show no edema. He has 2+ pulses throughout. The patient is awake, alert, and oriented. He moves all 4 extremities equally. LABORATORY DATA/DIAGNOSTIC STUDIES: Chemistries within normal limits. BUN 21, creatinine 2.2, which is slightly above his baseline. CBC within normal limits. EKG shows normal sinus rhythm with single PVC. Echocardiogram showed normal LV size and systolic function. No significant valvular abnormalities. IMPRESSION: This is a 72-year-old gentleman with a history of coronary artery disease who underwent a laminectomy today. During the procedure, he had no problems. In the postop area, he did have a number runs of nonsustained ventricular tachycardia. They were asymptomatic. His longest run was 7 beats. The patient is on chronic beta-blockers. The patient's echocardiogram showed normal LV size and systolic function. For now, my recommendation is the patient undergo a chemical nuclear stress test in the morning to evaluate for ischemia. If there is no evidence of ischemia, the patient can be discharged home. If there are significant areas of ischemia, I would consider a cardiac catheterization. His medications will remain the same. [id number]/[facility] #: [id number] MTDD
[2018-09-04 06:45] LABS: ABS Basophils 0 10^3/ul (0-0.2); ABS Eosinophils 0 10^3/ul (0-0.6); ABS Lymphocytes 0.6 10^3/ul (1.0-4.8); ABS Monocytes 0.7 10^3/ul (0-0.8); ABS Neutrophils 7.6 10^3/ul (1.5-7.7); ABS Nucleated RBC 0 10^3/ul; Eosinophil % 0 % (0-6); Hematocrit 38 % (42-52); Hemoglobin 12.6 g/dl (14.0-18.0); Lymphocyte % 6.8 % (25-47); Mean Corpuscular HGB Conc 33 g/dl (31-36); Mean Corpuscular Hemoglobin 30 pg (27-31); Mean Corpuscular Volume 91 fL (80-94); Mean Platelet Volume 8.1 fL (7.4-10.4); Nucleated Red Blood Cells % 0; Platelet Count 138 10^3/ul (150-450); Red Blood Count 4.22 10^6/ul (4.00-5.40); Red Cell Distribution Width 15 % (10.5-15)
--- NOTE | 2018-09-04 07:15 | CONS ---
PULMONARY CRITICAL CARE CONSULTATION REPORT: DATE OF CONSULT: 09/03/18 CONSULTATION REQUESTED BY: Mayelin Bustamante MD REASON FOR CONSULT: Evaluation of nonsustained ventricular tachycardia on the floor and need for critical care monitoring. HISTORY OF PRESENT ILLNESS: The patient is a 72-year-old male with history of coronary artery disease and stenting in 2013 to LAD, 70% stenosis of mid right coronary artery. The patient was scheduled for outpatient laminectomy procedure for chronic back pain. The patient did not have any issues intraoperatively. Postoperatively, in Recovery, he had runs of nonsustained ventricular tachycardia. He had 4 to 5 episodes of 7 beats of nonsustained V- tach. He was essentially asymptomatic during this time. No acute ST-T wave changes were noted on his EKG. The patient was transferred from PACU to ICU for close monitoring. The patient was seen and examined at bedside. He denied any episodes of tachycardia while in the ICU. He had procedure done with NATIVIDAD drain in place draining serosanguineous fluid. The patient remained asymptomatic and also hemodynamically stable throughout his stay here in the ICU. Cardiology was consulted. The patient had echocardiogram that showed evidence of mild aortic stenosis with valve gradient of 10 mmHg. He also was found to have trace aortic regurgitation. Normal left ventricular systolic function with EF of 55% to 60% noted. Trace mitral and tricuspid regurgitation. PAST MEDICAL HISTORY: 1. Unprovoked DVT due to lupus anticoagulant. 2. Aflutter. 3. CAD. 4. Spinal stenosis. 5. Osteoarthritis. 6. Hypertension. 7. Dyslipidemia. 8. BPH. 9. SHU. PAST SURGICAL HISTORY: 1. Total hip arthroplasty. 2. Appendectomy. 3. Cardiac cath x2. 4. Left total knee replacement. 5. Laminectomy of L3-L4 and L4-L5 on 09/03/18. MEDICATIONS: At home: 1. Atarax. 2. Norvasc. 3. Warfarin. 4. Saw palmetto. 5. Altace. 6. Multivitamin. 7. Toprol. 8. Lipitor. 9. Aspirin. 10. Alfuzosin. ALLERGIES: ASPIRIN and IBUPROFEN. FAMILY HISTORY: Mother has history of dementia and hypertension. Father with CAD and CHF. SOCIAL HISTORY: No alcohol or drug abuse. Nonsmoker. REVIEW OF SYSTEMS: All 14 systems reviewed and as per HPI. PHYSICAL EXAM: The patient in bed, in no apparent distress. Alert, awake, and comfortable. Vital Signs: Temperature 98.8, pulse 86 beats per minute, respiratory rate 21 per minute, O2 sat 96% on 2 L, blood pressure 145/85. Lungs : Good air entry bilaterally. Cardiovascular: S1, S2 present, regular. No murmurs. Abdomen: Soft, nontender, nondistended. Bowel sounds present. Extremities: Normal range of motion. No edema. Neuro: Alert, awake, oriented x3. No focal deficits. DIAGNOSTIC STUDIES/LAB DATA: WBC count 7.9, hemoglobin 13.5, hematocrit 41, platelet count 154,000. Sodium 142, potassium 4.5, chloride 112, bicarb 24, BUN 27, creatinine 2.25, magnesium slightly low at 1.8. TSH within normal limits. IMPRESSION AND RECOMMENDATIONS: A 72-year-old male with history of coronary artery disease, chronic back pain, underwent the scheduled laminectomy procedure. Postop in Recovery, was found to have nonsustained ventricular tachycardia and was transferred to ICU for further monitoring. Nonsustained ventricular tachycardia likely secondary to stress from anesthesia. Given preexisting coronary artery disease, will need to evaluate further with stressors. The patient seen by Cardiology. He is to have stress test in the morning. Troponins x2 have been negative. He did not have any evidence of hypokalemia. Hypomagnesemia was repleted. He did not have any further episodes of ventricular tachycardia. He has history of obstructive sleep apnea , not comfortable with CPAP usage and has not been compliant with it. Thank you allowing me to participate in the care of your patient. Will sign off from critical care perspective as the patient is not requiring ICU intervention at this time. Will reconsult and follow up as needed. [id number]/[facility] #: [id number] NATALIE
--- NOTE | 2018-09-04 07:47 | PN ---
Progress Note - Progress Note Date of Service: 09/04/18 SOAP: Subjective: [S/p decompressive lumbar laminectomy L3-4, L4-5, POD #1. Patient transferred to ICU yesterday post-op for cardiac monitoring and work up of VT. Feeling well this morning. Pain well controlled with PO medications. Eating, drinking and voiding without difficulty. ] Objective: [ Vital Signs: Temp Pulse Resp BP Pulse Ox 98.6 F 76 13 152/88 92 09/04/18 04:00 09/04/18 07:00 09/04/18 07:00 09/04/18 06:31 09/04/18 07:00 General: Alert and NAD, sitting up in bed. Neuro: Motor and sensory normal. Wound drain output 09/03/18 09/03/18 09/03/18 10:15 12:56 19:00 Output, NATIVIDAD #1 20 65 90 09/03/18 09/04/18 20:00 01:00 Output, NATIVIDAD #1 90 30 ] Assessment: [Satisfactory post-op from neurosurgery standpoint.] Plan: [1. Possible discharge home today if cardiac evaluation is negative. ]
[2018-09-04] MEDS ORDERED: Regadenoson* 0.4 MG/5 ML SYRINGE ONE (10:25)
--- NOTE | 2018-09-04 12:02 | PN ---
<Alia oLpez - Last Filed: 09/04/18 12:22> Subjective Date of Service: 09/04/18 - follow up due to bigeminy PVC with h/o CAD Interval History: I had the pleasure seeing Mr. bell today on behalf of Dr. Aguirre. He follows Dr. Knight of our practice for his known CAD with prior SELENA to LAD in 2012 with known RCA lesion. He underwent a laminectomy 09/03/2018 post procedure had frequent PVCs and NSVT( 4-7 beat count monomorpic in nature). He denies sensation of forceful heart beats, palpitations, sensation of heart race, chest pain, dizziness or sob. According to the patient his anginal equivalent is chest pain. He offers no complaints at this time. Medications Active Medications: Acetaminophen (Tylenol Tab*) 650 mg PO Q4H PRN PRN Reason: PAIN Hydrocodone Bitart/Acetaminophen (Shiner 5-325 Tab*) 2 tab PO Q4H PRN PRN Reason: marked pain Amlodipine Besylate (Norvasc Tab*) 2.5 mg PO QPM [facility] Last Admin: 09/03/18 18:11 Dose: 2.5 mg Atorvastatin Calcium (Lipitor*) 40 mg PO 2100 [facility] Last Admin: 09/03/18 20:16 Dose: 40 mg Hydroxyzine HCl (Atarax Tab*) 25 mg PO BEDTIME [facility] Last Admin: 09/03/18 21:30 Dose: Not Given Lactated Ringer's (Lactated Ringers 1000 Ml Bag*) 1,000 mls @ 75 mls/hr IV .per rate [facility] Last Admin: 09/04/18 00:49 Dose: 75 mls/hr Magnesium Hydroxide (Milk Of Magnesia Liq*) 30 ml PO DAILY PRN PRN Reason: CONSTIPATION Metoprolol Succinate (Toprol Xl Tab*) 50 mg PO QPM [facility] Last Admin: 09/03/18 18:11 Dose: 50 mg Ondansetron HCl (Zofran Inj*) 4 mg IV Q6H PRN PRN Reason: NAUSEA/VOMITING Ramipril (Altace Cap*) 10 mg PO QPM [facility] Last Admin: 09/03/18 20:15 Dose: 10 mg Objective Vital Signs: Temp Pulse Resp BP Pulse Ox 97 F 88 20 164/70 81 09/04/18 08:00 09/04/18 10:00 09/04/18 10:00 09/04/18 09:59 09/04/18 10:00 Oxygen Devices in Use Now: None Appearance: well nourished, obeses pleasant gentleman, NAD Eyes: No Scleral Icterus, PERRLA Ears/Nose/Mouth/Throat: NL Teeth, Lips, Gums, Clear Oropharnyx, Mucous Membranes Moist Neck: NL Appearance and Movements; NL JVP, Trachea Midline Respiratory: Symmetrical Chest Expansion and Respiratory Effort, Clear to Auscultation, Clear to Percussion, Clear to Palpation Cardiovascular: NL Sounds; No Murmurs; No JVD, RRR, No Edema Abdominal: NL Sounds; No Tenderness; No Distention Extremities: No Edema Neurological: Alert and Oriented x 3 Laboratory Results: 09/04/18 06:15 09/03/18 16:37 INR (Anticoag Therapy) 1.04 (0.77-1.02) H 09/03/18 06:33 Total Bilirubin 0.50 mg/dL (0.2-1.0) 09/03/18 16:37 AST 55 U/L (13-39) H 09/03/18 16:37 ALT 62 U/L (7-52) H 09/03/18 16:37 Alkaline Phosphatase 62 U/L (34-104) 09/03/18 16:37 Total Protein 6.4 g/dL (6.4-8.9) 09/03/18 16:37 Albumin 3.6 g/dL (3.2-5.2) 09/03/18 16:37 Globulin 2.8 g/dL (2-4) 09/03/18 16:37 Albumin/Globulin Ratio 1.3 (1-3) 09/03/18 16:37 TSH 1.84 mcIU/mL (0.34-5.60) 09/03/18 11:33 09/03/18 09/03/18 09/04/18 11:33 16:37 06:15 Troponin I 0.03 0.03 0.04 H* Diagnostic Imaging: echo 09/03/2018; LVEF no WMA, trace AI, mild . Lexiscan ST 09/04/2018 pending. non diagnostic regadenoson ecg portion still waiting for nuclear imaging. bigeminy improved with regadenoson injection. Telemetry; bigeminy pvc's. NSVT 4-7 beat count 09/03/2018 monomorphic in nature. no sustained vt Assessment/Plan #1 s/p Decompression Laminectomy 09/03/2018; defer to [place] and team. #2 NSVT with frequent PVCs and bigeminy; patient is not symptomatic. NSVT ws 4- 7 beats at most monomorphic in nature. LVEF is preserved on echo 55-60%. Magnesium 1.8 11/03/2017 which was replaced. k+ was >4. will repeat mag level. Recommend keeping K+ >4 and Magnesium >2. Await lexiscan stress test. continue bblocker therapy. if stress test is low risk will consider increasing BBlocker therapy. troponin minimally elevated. .04. Of note after review of prior ecg in 2017 he had notable trigeminy PVC. #3 h/o CAD with prior SELENA to LAD with known RCA stenosis. denies anginal equivalent. await risk stratification ( lexiscan stress test) Once able to resume aspirin 81mg Po daily would recommend doing so. continue Bblocker and statin therapy. #4 Mild ; patient is stable and asymptomatic he can follow up with Dr. Knight outpatient. #5 h/o DVT unprovoked has been on coumadin since [address] Blevins. Defer to primary team. #6 Disposition pending course will await lexiscan nuclear results. <Caroline Aguirre - Last Filed: 09/04/18 15:01> Subjective Interval History: I was called by nursing to see the pt urgently as he stated he was going to leave A. No chest pain, palpitations, nausea or diaphoresis. LSwisher Medications Active Medications: Acetaminophen (Tylenol Tab*) 650 mg PO Q4H PRN PRN Reason: PAIN Hydrocodone Bitart/Acetaminophen (Shiner 5-325 Tab*) 2 tab PO Q4H PRN PRN Reason: marked pain Amlodipine Besylate (Norvasc Tab*) 2.5 mg PO QPM [facility] Last Admin: 09/03/18 18:11 Dose: 2.5 mg Atorvastatin Calcium (Lipitor*) 40 mg PO 2100 [facility] Last Admin: 09/03/18 20:16 Dose: 40 mg Hydroxyzine HCl (Atarax Tab*) 25 mg PO BEDTIME [facility] Last Admin: 09/03/18 21:30 Dose: Not Given Lactated Ringer's (Lactated Ringers 1000 Ml Bag*) 1,000 mls @ 75 mls/hr IV .per rate [facility] Last Admin: 09/04/18 00:49 Dose: 75 mls/hr Magnesium Hydroxide (Milk Of Magnonel Liq*) 30 ml PO DAILY PRN PRN Reason: CONSTIPATION Metoprolol Succinate (Toprol Xl Tab*) 50 mg PO QPM [facility] Last Admin: 09/03/18 18:11 Dose: 50 mg Ondansetron HCl (Zofran Inj*) 4 mg IV Q6H PRN PRN Reason: NAUSEA/VOMITING Ramipril (Altace Cap*) 10 mg PO QPM [facility] Last Admin: 09/03/18 20:15 Dose: 10 mg Objective Vital Signs: Temp Pulse Resp BP Pulse Ox 96.8 F 78 19 159/75 96 09/04/18 12:00 09/04/18 14:02 09/04/18 14:02 09/04/18 14:02 09/04/18 14:02 Laboratory Results: 09/04/18 06:15 09/03/18 16:37 INR (Anticoag Therapy) 1.04 (0.77-1.02) H 09/03/18 06:33 Total Bilirubin 0.50 mg/dL (0.2-1.0) 09/03/18 16:37 AST 55 U/L (13-39) H 09/03/18 16:37 ALT 62 U/L (7-52) H 09/03/18 16:37 Alkaline Phosphatase 62 U/L (34-104) 09/03/18 16:37 Total Protein 6.4 g/dL (6.4-8.9) 09/03/18 16:37 Albumin 3.6 g/dL (3.2-5.2) 09/03/18 16:37 Globulin 2.8 g/dL (2-4) 09/03/18 16:37 Albumin/Globulin Ratio 1.3 (1-3) 09/03/18 16:37 TSH 1.84 mcIU/mL (0.34-5.60) 09/03/18 11:33 09/03/18 09/03/18 09/04/18 11:33 16:37 06:15 Troponin I 0.03 0.03 0.04 H* Diagnostic Imaging: Lexiscan myoview study: EF 49%, reversable ischemia in the inferior wall. Cardiac catheterization 2012: Stent to tight LAD 70% RCA lesion, mid. Assessment/Plan 72 yo with CAD, several bursts of NSVT (7 IAR) post op laminectomy. The pt has had left lower jaw tingling out of the hospital (neuropathy vs. anginal equivelent). Reversible ischemia in RCA territory. NSVT: Ideally would cath and stent RCA and see if this resolves. As the patient has a NATIVIDAD drain in laminectomy sight, not appropriate now. I would not want to add Brilinta or Plavix immediately post op. Now I will increase Toprol XL to 75 mg/day. Avoid strenuous activity. CAD: Stress test c/w progression in RCA lesion, territory of the LAD stent shows good perfusion. Needs aggressive risk factor modification. BP high here, but post op. Toprol increase may improve. Continue lipator and norvasc. Lifestyle improvements would help, very overweight. Anticoag: With hx DVT, lupus anticoagulant, OK to resume either lovenox or coumodin as per Neurosurgery. We can hold again pre cath. The patient should f/u with Dr Knight, usual financial cost analyst next week.
[2018-09-04 15:01] VITALS: BP 153/68
--- NOTE | 2018-09-04 15:23 | DS ---
Discharge Summary Date of Admission: 09/03/18 Date of Discharge: 09/04/18 Attending Physician: Macie PCP: Franco Shields Admission Diagnosis: Spinal Stenosis Discharge Diagnosis: NSVT (nonsustained ventricular tachycardia) (Acute) I47.2 Lumbar stenosis (Acute) M48.061 Recurrent deep vein thrombosis (DVT) (Acute) I82.409 CAD (coronary artery disease) (Acute) I25.10 HLD (hyperlipidemia) (Acute) E78.5 Obesity (Acute) E66.9 Consultations: Cardiology ([place]) NeuroSurg (Franny) Procedures: L4-L5 Laminectomy HPI: Mr. Tracy is a 72-year-old male patient that has sought care with Dr. Blanton and his team for worsening back pain. He had been dealing with back pain for some time. It was restricting his activity. He was having neurogenic claudication. He presented to Dr. Blanton's office and it was ultimately felt that the patient would benefit from a lumbar decompressive laminectomy, which he underwent today. It was noted that during his procedure he had episodes of bigeminy. Because of this, we were asked to evaluate in consult. He does have a significant past medical history in the sense that he carries a history of unprovoked DVT in the past, lupus anticoagulant, history of aflutter, CAD, spinal stenosis, arthritis, hypertension, hyperlipidemia, BPH, SHU. He was evaluated in the postoperative setting. He denies having any chest pain or shortness of breath. He denies any palpitations. He denies having any abdominal pain. He states he is not feeling nauseous. He denies having any lower extremity weakness and he denies having any bowel or bladder incontinence. He states that he does feel sore along the incision site from his surgery. He otherwise states he is feeling well, but because of the bigeminy and his complexity, we were asked to evaluate in consult. Brief Hospital Course: The patient had a nuclear stress test which showed an area of reversible ischemia in the inferior wall. The patient has known 70% lesion in the RCA. These finding likely represent tightening of the lesion. As the patient continues to have a lumbar drain in place, a LHC is deferred until that drain is removed on Sunday morning. The patient was seen by cardiology who agrees with that plan. His toprol was increased to 75mg. His coumadin remains on hold until his drain is removed. Physical Exam: Vital Signs: Temp Pulse Resp BP Pulse Ox 96.8 F 107 22 153/68 88 09/04/18 12:00 09/04/18 15:00 09/04/18 15:00 09/04/18 14:32 09/04/18 15:00 Gen- NAD HEENT - ncat, eomi, perrl Neck - no jvd CV - S1/s2, irregular, no murmur Lungs - CTA, no wheeze Abd - soft, nt Ext - no cce Back - +lumbar drain Neuro - Non-focal Pending Lab or Test Results: None Discharge Disposition: Home Diet: Heart Healthy Diet Discharge Medications: Acetaminophen (Tylenol Tab*) 650 mg PO Q4H PRN PRN Reason: PAIN Hydrocodone Bitart/Acetaminophen (Beauty 5-325 Tab*) 2 tab PO Q4H PRN PRN Reason: marked pain Amlodipine Besylate (Norvasc Tab*) 2.5 mg PO QPM [facility] Last Admin: 09/03/18 18:11 Dose: 2.5 mg Atorvastatin Calcium (Lipitor*) 40 mg PO 2100 [facility] Last Admin: 09/03/18 20:16 Dose: 40 mg Hydroxyzine HCl (Atarax Tab*) 25 mg PO BEDTIME [facility] Last Admin: 09/03/18 21:30 Dose: Not Given Lactated Ringer's (Lactated Ringers 1000 Ml Bag*) 1,000 mls @ 75 mls/hr IV .per rate [facility] Last Admin: 09/04/18 00:49 Dose: 75 mls/hr Magnesium Hydroxide (Milk Of Magnesia Liq*) 30 ml PO DAILY PRN PRN Reason: CONSTIPATION Metoprolol Succinate (Toprol Xl Tab*) 75 mg PO QPM [facility] Last Admin: 09/03/18 18:11 Dose: 75 mg Ondansetron HCl (Zofran Inj*) 4 mg IV Q6H PRN PRN Reason: NAUSEA/VOMITING Ramipril (Altace Cap*) 10 mg PO QPM [facility] Last Admin: 09/03/18 20:15 Dose: 10 mg Aspirin 81mg po daily Discharge Instructions: Daily dressing changes. Hold coumadin Until Drain removed by Neurosurgery. Follow-up Appointments: Please follow up with Dr. Blanton on Sunday. Please follow up with your PMD Please follow up with your Engine Repairer, Dr. Knight
--- NOTE | 2018-09-09 20:30 | OP ---
DATE OF OPERATION: 09/03/18 - ROOM #ICU-12 DATE OF : 41 PRIMARY SURGEON: Arnie Blanton MD PAINT BRUSH MAKER: FRANCISCO Marley ANESTHESIA: General. PRE-OP DIAGNOSIS: Lumbar spinal stenosis, L3-4, L4-5. POST-OP DIAGNOSIS: Lumbar spinal stenosis, L3-4, L4-5. OPERATIVE PROCEDURE: Decompressive lumbar laminectomy, L3-4, L4-5 with foraminotomies, L3-4, L4-5. DESCRIPTION OF PROCEDURE: After satisfactory general anesthesia was obtained, the patient was placed on the operating table in prone position with the chest supported on the Blair frame and the back slightly flexed. The lumbar region was then clipped, prepped, and draped in a sterile manner for lumbar laminectomy. The skin incision was then outlined from L3 to L5. This incision was infiltrated with 1% Xylocaine with epinephrine, after which it was turned down sharply to the level of the lumbar fascia. The fascia was divided along the spinous processes from L3 to L5 and paraspinal musculature stripped away from these posterior elements bilaterally using the monopolar cautery and periosteal elevator. An intraoperative x-ray was obtained verifying proper interspace localization after which a decompression was initially created at the L3-4 level. This was done by removing the spinous processes of L3 and L4 with a Gianna barrel rib matting machine operator as well as Suzanna rongeur. A Midas Armen drill was then used to thin out the remaining portion of the base of the spinous processes of L3. Kerrison was used to perform decompression. This was carried superiorly until the attachment of ligamentum flavum was taken down. Ligamentum flavum was then removed with the Kerrison. The pathology at this level was a combination of ligamentous thickening as well as bony hypertrophy. The dissection was carried out laterally and inferiorly until generous foraminotomy had been carried out over both L4 nerve roots. Attention was then directed to the L4- L5 level where similar decompression was carried out. The findings at the L4-L5 level on the left side were quite severe with marked foraminal narrowing. Generous decompression was carried out until both L5 nerve roots were noted to be free in their course. After assuring adequate hemostasis, wound was thoroughly irrigated after which the fascia was reapproximated with 0 Vicryl suture. A Harpreet drain was placed in the epidural space prior to fascial closure. The subcutaneous tissues were closed with 3-0 Vicryl and the skin closed with skin clips. The estimated blood loss was 200 cc and the final sponge, pad, and needle counts were correct. The patient was taken to the recovery room extubated and in stable condition. [id number]/[facility] #: [id number] MTDD
== END 2018-09-04 15:35 | disposition home or self-care (01) ==
LOC: OR 05:42 → SSU 09:49 → ICU 14:11
PROVIDERS: ADMIT Neurological Surgery; ATTEND Internal Medicine
DX: M48.062 Spinal stenosis, lumbar region with neurogenic claudication (principal); M54.9 Dorsalgia, unspecified; M79.606 Pain in leg, unspecified; I25.10 Atherosclerotic heart disease of native coronary artery without angina pectoris; Z79.82 Long term (current) use of aspirin; Z95.5 Presence of coronary angioplasty implant and graft; Z86.718 Personal history of other venous thrombosis and embolism; I48.92 Unspecified atrial flutter; M19.90 Unspecified osteoarthritis, unspecified site; I10 Essential (primary) hypertension; E78.5 Hyperlipidemia, unspecified; N40.0 Benign prostatic hyperplasia without lower urinary tract symptoms; G47.33 Obstructive sleep apnea (adult) (pediatric); Z79.01 Long term (current) use of anticoagulants
CPT/HCPCS: 36415; 72100; 78452; 80048; 80053; 83735; 84443; 84484; 85025; 85027; 85610; 86850; 86900; 86901; 93005; 93017; 93306; 94660; 96372; 96374; 96375; 96376; A9270-GY; A9502; G0378; J0330; J0690; J1100; J1240; J2250; J2405; J2704; J2785; J3010; J3475

== ENCOUNTER → 2018-09-19 07:29 | Day surgery (SDC) | payer MEDICARE, BC ==
[~2018-09-19 07:29] MED LIST changes: +Bivalirudin(*) 250 MG VIAL ONE; -Buffered Lidocaine 0.9% SYRIN* 5 ML/SYR SYRINGE INTRADERM ONE; +Diazepam TAB(*) 5 MG ONE; +Enoxaparin(*) 100 MG/ML SYR SUBCUT SCH; +Heparin 2 UNITS/ML IVPREMIX* 3,000 ML IV ONE; +Heparin(*) 1000 UNIT/ML 10 ML VIAL CATH LAB IV ONE; +Iodixanol 320 (CONTRAST) 100 ML SDV ONE; +Lidocaine 1% INJ* 10 MG/ML 30 ML SDV ONE; +Midazolam* 1 MG/ML 10 ML VIAL (10 MG) ONE; +NS 0.9% 1000 ML* 1,000 ML IV SCH; +Ticagrelor* 90 MG TAB PO ONE; +VERAPAMIL 2.5 MG/ML 2 ML VIAL ** 5 mg/2 ml ONE; +fentaNYL* 50 MCG/ML 2 ML VIAL (100 MCG VIAL) ONE; +nitroGLYCERIN DRIP* 25,000 MCG/250 ML BTL ONE
[2018-09-19 16:33] VITALS: BP 147/84
--- NOTE | 2018-09-21 23:40 | CATH ---
CC: Franco Shields MD; Dr. Ky Knight, [facility] * CARDIAC CATHETERIZATION REPORT: DATE OF PROCEDURE: 09/19/18 - [facility] CATH REASON FOR PROCEDURE: The patient with a known history of critical disease involving the distal right coronary artery with ischemia to the inferior wall and ventricular tachycardia, now for attempt at intervention. PROCEDURE: Coronary arteriography of the right coronary artery. CONSENT: The patient was interviewed and examined in the holding area of the technical laboratory asst where the risks and benefits were explained. He has specifically been brought in early to be hydrated up for several hours prior to the procedure due to his renal insufficiency. He understood the risks and benefits and wished to proceed. PRECARDIAC CATHETERIZATION LABORATORY RESULTS: Bun and creatinine of 24 and 2.1. Sodium of 142, potassium 5.3, chloride 109, bicarb 27. Hemoglobin and hematocrit of 12.6 and 38 and platelet count of 138,000. APPROACH UTILIZED: The right radial artery was assessed under ultrasound in the holding area and found to be acceptable for an approach. EQUIPMENT UTILIZED: 1. Right radial artery sheath with a 6-Czech Glidesheath. 2. Guide catheters attempted - 6-Czech IR1 curve Heartrail III, a AR2 6- Czech guide catheter, and FR4 6-Czech guide catheter. 3. Interventional wire - a 300-cm length All Star guide wire. DESCRIPTION OF PROCEDURE: The patient was brought into the cardiovascular laboratory where a formal time-out was performed. He was prepped and draped in a sterile fashion and under ultrasound guidance, the right radial artery was cannulated and the sheath was placed. Of note, multiple attempts were made to try to cannulate the right coronary artery, which had an anterior take-off. The interventional wire was attempted to be passed down the right coronary artery but was unsuccessful due to the fact that there was no significant guide catheter support. There was not even enough support to get the wire far enough to introduce a guide liner support catheter. Given the fact that the patient received already 90 cc of contrast, the decision was made to abort the procedure and bring the patient back for femoral approach. The catheter and sheath were removed, a hemostasis was obtained with a Vasc Band. The reverse Barbeau was a B. The radiation exposure included 14.2 minutes of fluoro time. The air kerma radiation was 1605 milligray, the DAP radiation was 10,398 microgray per sq. m. RESULTS: SELECTIVE RIGHT CORONARY ARTERIOGRAPHY: The right coronary artery showed diffuse disease with mild narrowing in its proximal portion. The mid portion of the right coronary artery after the take-off of an acute marginal branch had a hazy area with narrowing that appeared to be as much as 65% to 70%. Past this point, the right artery turned on to the inferior surface of the heart and in its distal segment, there was a critical 90% to 95% blockage seen. There was a question of faint filling to a very short distance of the PDA. The continuation of the right coronary artery supplied multiple posterior left ventricular branches that appeared to be underfilled. OVERALL ASSESSMENT: Unsuccessful attempt via the right radial artery to intervene into the right coronary artery given poor guide catheter support. The patient will be hydrated post-procedure now and brought back in a week's time to attempt the procedure from the femoral approach. Of note, the anterior take-off the right coronary artery was noted and will be addressed with catheter selection from the groin. [id number]/[facility] #: [id number] NATALIE
== END | disposition home or self-care (01) ==
LOC: CHICATH 07:29
PROVIDERS: ATTEND Internal Medicine Cardiovascular Disease
DX: I25.10 Atherosclerotic heart disease of native coronary artery without angina pectoris (principal); I47.1 Supraventricular tachycardia; Z95.5 Presence of coronary angioplasty implant and graft; Z79.01 Long term (current) use of anticoagulants; G47.33 Obstructive sleep apnea (adult) (pediatric); I10 Essential (primary) hypertension
CPT/HCPCS: 76937; 85347; 93454; A9270-GY; C1769; C1887; J0583; J1644; J2250; J3010

== ENCOUNTER 2018-09-25 06:59 | Observation (INO) | payer MEDICARE, BC ==
[2018-09-25] MEDS ORDERED: Ticagrelor* 90 MG TAB PO ONE ×2 (09:33→09:46)
[2018-09-25] MEDS ORDERED: Diazepam TAB(*) 5 MG PO ONE (09:33)
[2018-09-25] MEDS ORDERED: Diazepam TAB(*) 5 MG ONE (11:15)
[2018-09-25] MEDS ORDERED: Midazolam* 1 MG/ML 10 ML VIAL (10 MG) ONE (12:50)
[2018-09-25] MEDS ORDERED: Lidocaine 1% INJ* 10 MG/ML 30 ML SDV ONE (12:50)
[2018-09-25] MEDS ORDERED: fentaNYL* 50 MCG/ML 2 ML VIAL (100 MCG VIAL) ONE (12:50)
[2018-09-25] MEDS ORDERED: Heparin 2 UNITS/ML IVPREMIX* 2,000 ML IV ONE (12:50)
[2018-09-25] MEDS ORDERED: Iohexol 350 (CONTRAST) 200 ML MDV IV ONE (12:51)
[2018-09-25] MEDS ORDERED: Iodixanol 320 (CONTRAST) 100 ML SDV ONE (13:00)
[2018-09-25] MEDS ORDERED: nitroGLYCERIN DRIP* 25,000 MCG/250 ML BTL ONE (13:01)
[2018-09-25] MEDS ORDERED: Bivalirudin(*) 250 MG VIAL ONE ×2 (13:03→13:28)
[2018-09-25] MEDS ORDERED: Nitroglycerin TAB 0.4 MG* 0.4 MG TAB SL PRN (14:01)
[2018-09-25] MEDS ORDERED: NS 0.9% 1000 ML* 400 ML IV SCH (14:15)
[2018-09-25] MEDS ORDERED: amLODIPine TAB* 5 MG PO SCH (18:00)
[2018-09-25] MEDS ORDERED: Ramipril CAP* 5 MG PO SCH (18:00)
[2018-09-25] MEDS ORDERED: Metoprolol Succinate XL TAB* 25 MG PO SCH (18:00)
[2018-09-25] MEDS ORDERED: hydrOXYzine HCL TAB* 25 MG PO SCH (21:00)
[2018-09-25] MEDS ORDERED: Atorvastatin* 40 MG TAB PO SCH (21:00)
[2018-09-25] MEDS: Ticagrelor* 90 MG TAB PO SCH (22:10)
[2018-09-26 05:12] LABS: ABS Basophils 0 10^3/ul (0-0.2); ABS Eosinophils 0.2 10^3/ul (0-0.6); ABS Lymphocytes 0.9 10^3/ul (1.0-4.8); ABS Monocytes 0.5 10^3/ul (0-0.8); ABS Neutrophils 3.6 10^3/ul (1.5-7.7); ABS Nucleated RBC 0 10^3/ul; Eosinophil % 3.8 %; Hematocrit 36 % (42-52); Hemoglobin 11.9 g/dl (14.0-18.0); Lymphocyte % 17.1 %; Mean Corpuscular HGB Conc 33 g/dl (31-36); Mean Corpuscular Hemoglobin 31 pg (27-31); Mean Corpuscular Volume 92 fL (80-94); Mean Platelet Volume 7.7 fL (7.4-10.4); Nucleated Red Blood Cells % 0.2; Platelet Count 175 10^3/ul (150-450); Red Cell Distribution Width 14 % (10.5-15); White Blood Count 5.2 10^3/ul (3.5-10.8)
[2018-09-26 05:33] LABS: BUN/Creatinine Ratio 12.3 (8-20); Calcium 8.1 mg/dL (8.6-10.3); EGFR Non-African American 33.8 (>60); HDL Cholesterol 24.4 mg/dL; Potassium 4.6 mmol/L (3.5-5.0)
[2018-09-26 06:02] LABS: INR 0.92 (0.77-1.02)
[2018-09-26] MEDS ORDERED: Enoxaparin(*) 150 MG/ML 1 ML SYRINGE SUBCUT SCH ×2 (07:18→08:00)
[2018-09-26] MEDS: Ticagrelor* 90 MG TAB PO SCH (07:39)
[2018-09-26] MEDS ORDERED: Enoxaparin(*) 100 MG/ML SYR SUBCUT SCH (08:00)
[2018-09-26] MEDS ORDERED: Aspirin 81 mg CHEW TAB* 81 MG TAB.CHEW PO SCH (09:00)
[2018-09-26] MEDS ORDERED: Metoprolol Succinate XL TAB* 50 MG PO SCH (09:00)
[2018-09-26] MEDS ORDERED: CMCS: Alfuzosin ER (NF) 10 MG TAB.ER PO SCH (09:00)
[2018-09-26 10:44] VITALS: BP 107/68
--- NOTE | 2018-09-26 16:29 | CATH ---
CC: Ky Knight MD; Franco Shields MD * INTERVENTIONAL REPORT: DATE OF PROCEDURE: 09/25/18 - ROOM #ICU-11 INDICATION FOR THE PROCEDURE: The patient with ventricular tachycardia and reversible ischemia to the inferior low posterior lateral wall with a history of coronary artery disease and a critically stenosed 90% to 95% distal lesion encompassing the area of possibly the takeoff of the PDA with a 65% to 70% lesion seen in the mid right coronary artery, now for attempted intervention to both lesions. PROCEDURE: Percutaneous balloon angioplasty and placement of a 2.25 x 20 mm long Synergy drug-eluting stent in the distal right coronary artery and primary stenting of the mid right coronary artery utilizing a 2.75 x 12 mm long Xience Dyan drug-eluting stent. CONSENT: The patient was interviewed and examined in the holding area, where the risks and benefits were explained. He understood them and wished to proceed. He was brought back this time early for hydration as for all other catheterizations and now to use the femoral approach for more guide catheter support. PRECARDIAC CATHETERIZATION LABORATORY RESULTS: BUN and creatinine of 26 and 2.2. Sodium 141, potassium 6, chloride 110, bicarb 27. MEDICATIONS UTILIZED: The patient received 180 mg of Brilinta in the holding area prior to coming into the laboratory chief. He also received an Angiomax bolus and an Angiomax drip in the laboratory chief. EQUIPMENT UTILIZED: 1. Right femoral artery sheath, 6-[place] Merit Prelude sheath. 2. Interventional guiding catheter, a 6-[place] AR1 with side holes in catheter , the interventional wire initially into the body of the right coronary artery with an All Star exchange length wire. 3. Balloon angioplasty catheter included over the wire 2.0 x 12 mm long Emerge balloon, stent placed distally with a 2.25 x 20 mm Synergy drug-eluting stent, stent placed in the mid segment at 2.75 x 12 mm long Xience stent. 4. Post stent deployment balloon inflation to the mid portion catheter - a 2.75 x 8 mm long NC Emerge balloon. TOTAL CONTRAST USED: The total contrast used was 50 cc of Visipaque dye. RADIATION EXPOSURE: The radiation exposure included 6 minutes of fluoro time. The air kerma radiation was 1862 milligray. The DAP radiation was 11,849 microgray per meter square. HEMOSTASIS TECHNIQUE: The sheath was sutured and placed for manual removal and manual compression in the intensive care unit. RESULTS: CORONARY ARTERIOGRAPHY: Right coronary artery - the right coronary artery had mild- to-moderate disease in its proximal portion with luminal reduction of 30% to 35%. The distal portion after turning on to the inferior surface of the heart became significantly narrowed in nature and subtotally occluded in the area of take off of the posterior descending artery. Past that point, there was faint filling to the distal vessel. The mid portion of the right coronary artery had a hazy 70% narrowing noted. INTERVENTION INTO THE DISTAL RIGHT CORONARY ARTERY: Successful balloon angioplasty and placement of a 2.25 x 20 mm long Synergy drug-eluting stent with judaism of brisk flow to the distal posterior LV branches and perfusion was now seen to the PDA as well. The PDA and the distal vessels were noted to be extremely thin in nature at best and not of the size that would make intervention possible. INTERVENTION INTO THE MID RIGHT CORONARY ARTERY: Successful reduction of hazy 70% obstruction with primary stenting utilizing a 2.75 x 12 mm long Xience Dyan drug- eluting stent postdilated to 2.85 mm with SARAH-3 flow, no dissection seen and less than 5% residual stenosis. OVERALL ASSESSMENT: Successful intervention into distal and mid right coronary arteries as described above. The patient now has 2 drug-eluting stents and dual - antiplatelet therapy, initially with Brilinta and baby aspirin for a month with consideration to switch over to Plavix and Dr. Knight's discretion being the fact that the patient will need Coumadin therapy for his clotting disorder. The patient will be evaluated tomorrow morning to assess to get restarted on Lovenox therapy after the sheath has been removed and Coumadin therapy instituted. [id number]/[facility] #: [id number] [facility]
--- NOTE | 2018-09-26 16:38 | DS ---
CC: Dr. Knight; Dr. Shields * DISCHARGE SUMMARY: DATE OF ADMISSION: 09/25/18 DATE OF DISCHARGE: 09/26/18 FINAL DIAGNOSES: 1. Stenotic coronary artery disease with ventricular tachycardia and ischemia to the inferior lobe posterolateral wall with PCI to distal and mid right coronary artery. 2. Essential hypertension. 3. Hyperlipidemia. 4. History of deep venous thrombosis. 5. History of atrial flutter. 6. History of atrial fibrillation. 7. Osteoarthritis. 8. Stenotic coronary artery disease. 9. Chronic renal insufficiency, chronic kidney disease 4. DISCHARGE MEDICATIONS: 1. Uroxatral 10 mg daily. 2. Amlodipine 2.5 mg q.p.m. 3. Aspirin 81 mg a day. 4. Atorvastatin 40 mg a day. 5. Atarax 25 mg at bedtime. 6. Metoprolol 50 mg in the morning, 75 mg in the p.m. 7. Ramipril 10 mg in the p.m. 8. Multi-Saige once a day. 9. Ticagrelor 90 mg b.i.d. 10. Lovenox 120 mg daily. 11. Warfarin 5 mg daily to be started tonight with stopping of the Lovenox once INR gets very close to 2 or just above it. SUMMARY OF BRIEF HOSPITALIZATION: The patient is a pleasant 72-year-old gentleman who is primarily watched for his cardiology care from Dr. Ky Knight. The patient had a recent history of frequent PVCs and nonsustained runs of ventricular tachycardia. He underwent nuclear stress testing, which revealed a new area of ischemia to his inferior wall. Of note, his apex had shown a small abnormality that has been present before. After having reviewed all of the studies more carefully, it is apparent that the mid to distal LAD is totally occluded in its mid portion and the prior stent placed in 2012 was from the LAD into a diagonal branch, not the LAD. I had explained all of that to the family on the week prior's attempt at intervening from the radial artery approach and they understand this. Because of his ischemia new to the inferior low posterolateral wall and his critical right coronary artery lesions, we brought him back for an attempt from the right femoral artery approach with more guide catheter support. We were able to easily get enough support to deliver the wire and perform balloon angioplasty and stenting of the distal right coronary artery with a 2.25 x 20 mm long Synergy drug-eluting stent and a second drug-eluting stent, a 2.75 x 12 mm long Xience Dyan stent in the mid right coronary artery with good results and less than 5% residual stenosis and SARAH-3 flow in both locations. Of note, in opening up the distal right coronary artery, we opened up the posterior descending artery as well as the continuation. It should be noted that all of his vessels appear to be diffusely diseased and narrowed. Sheath was manually pulled in the intensive care unit and this morning, he was up and around without significant problems. PHYSICAL EXAMINATION: On examination, his vital signs were stable. His lungs were clear. Heart had a regular rhythm with extrasystoles. Abdomen was obese. His right groin area was well healed with no hematoma, good pulse and no bruits, and distal pulses were intact. He was given his stent cards in addition to the education booklet and he will be following up with Dr. Knight on Sunday of next week for a both a wound check and also for further management of his cardiac status. Consideration toward perhaps increasing his Lipitor to 80 mg might be appropriate if he can tolerate this. He is currently on dual antiplatelets and his Lovenox is being restarted at 120 mg a day and his Coumadin will be started at 5 mg a day with the Lovenox stopped when his daily INRs show that they are approaching 2.0. I reviewed this extensively with his . Ultimately, consideration toward dropping one of the antiplatelet agents with him on warfarin may have to be considered and I will leave that to the discretion of Dr. Knight in followup with the patient. One more interesting note, the patient did have sustained bigeminy at times and perhaps a repeat Holter once we have given his heart a chance to settle down may be helpful to see the volume of PVCs he has. I would leave that to discretion of Dr. Knight as well. [id number]/[facility] #: [id number] [facility]
[2018-09-26] MEDS ORDERED: Warfarin TAB(*) 5 MG PO SCH (17:00)
== END 2018-09-26 10:00 | disposition home or self-care (01) ==
LOC: CHICATH 06:59 → ICU 15:23
PROVIDERS: ADMIT Internal Medicine Cardiovascular Disease; ATTEND Internal Medicine Cardiovascular Disease
DX: I25.10 Atherosclerotic heart disease of native coronary artery without angina pectoris (principal); I47.2 Ventricular tachycardia; I12.9 Hypertensive chronic kidney disease with stage 1 through stage 4 chronic kidney disease, or unspecified chronic kidney disease; N18.4 Chronic kidney disease, stage 4 (severe); E78.5 Hyperlipidemia, unspecified; Z86.718 Personal history of other venous thrombosis and embolism; Z86.79 Personal history of other diseases of the circulatory system; M19.90 Unspecified osteoarthritis, unspecified site; Z79.82 Long term (current) use of aspirin; Z79.01 Long term (current) use of anticoagulants; Z96.642 Presence of left artificial hip joint
CPT/HCPCS: 36415; 80048; 80061; 85025; 85347; 85610; 87641; 93005; 93454; 96361; 96372; 96374; A9270-GY; C1725; C1769; C1876; C1887; C9600-RC; G0378; J0583; J1644; J1650; J2250; J3010

== ENCOUNTER 2022-08-11 06:40 | Observation (INO) ==
[~2022-08-11 06:40] MED LIST changes: -Bivalirudin(*) 250 MG VIAL ONE; +Buffered Lidocaine 1% SYRIN 1 ml INTRADERM ONE; -Diazepam TAB(*) 5 MG ONE; -Enoxaparin(*) 100 MG/ML SYR SUBCUT SCH; -Heparin 2 UNITS/ML IVPREMIX* 3,000 ML IV ONE; -Heparin(*) 1000 UNIT/ML 10 ML VIAL CATH LAB IV ONE; -Iodixanol 320 (CONTRAST) 100 ML SDV ONE; +Lactated Ringers 1000 ml BAG 1,000 ML IV SCH; -Lidocaine 1% INJ* 10 MG/ML 30 ML SDV ONE; -Midazolam* 1 MG/ML 10 ML VIAL (10 MG) ONE; -NS 0.9% 1000 ML* 1,000 ML IV SCH; -Ticagrelor* 90 MG TAB PO ONE; -VERAPAMIL 2.5 MG/ML 2 ML VIAL ** 5 mg/2 ml ONE; -fentaNYL* 50 MCG/ML 2 ML VIAL (100 MCG VIAL) ONE; -nitroGLYCERIN DRIP* 25,000 MCG/250 ML BTL ONE
[2022-08-11] MEDS ORDERED: Ropivacaine 5 MG/ML 20 ML VIAL 0.5% (100 MG) ONE (06:55)
[2022-08-11] MEDS ORDERED: Propofol 10 MG/ML 20 ML BTL ONE ×2 (06:57→10:23)
[2022-08-11] MEDS ORDERED: Dexamethasone IV 4 MG/ML VIAL 1 ml VIAL ONE (06:57)
[2022-08-11] MEDS ORDERED: Midazolam 2 mg/2 ml VIAL 1 mg/ml 2 ml VIAL (2 mg) ONE (06:57)
[2022-08-11] MEDS ORDERED: Ondansetron 4 mg VIAL 2 MG/ML 2 ml VIAL ONE (06:57)
[2022-08-11] MEDS ORDERED: fentaNYL 100 mcg/2 ml 50 MCG/ML VIAL ONE ×2 (07:00→08:41)
[2022-08-11] MEDS ORDERED: ceFAZolin 2 GM PREMIX 2 GM/50 ML BAG ONE (07:02)
[2022-08-11] MEDS ORDERED: ceFAZolin 1 GM in Dextrose 1 GM/50 ML BAG ONE (07:02)
[2022-08-11] MEDS ORDERED: Buffered Lidocaine 1% SYRIN 1 ml INTRADERM ONE (07:02)
[2022-08-11 07:44] LABS: INR 1.03 (0.89-1.11)
[2022-08-11 07:53] LABS: Calcium 9.8 mg/dL (8.6-10.3); Potassium 4.8 mmol/L (3.5-5.0); eGFR CKD-EPI 26.7 (>60)
[2022-08-11] MEDS ORDERED: ROPIVACAINE 5 MG/ML 30 ML BTL (0.5%) ONE (08:13)
[2022-08-11] MEDS ORDERED: Phenylephrine IV 10 MG/ML 1 ml VIAL ONE (08:15)
[2022-08-11] MEDS ORDERED: Lidocaine 2% PF 5 ML VIAL ONE ×2 (08:53→10:23)
[2022-08-11] MEDS ORDERED: Ketamine HCL 50 mg/ml 10 ml VIAL (500 MG) ONE (09:45)
[2022-08-11] MEDS ORDERED: Naloxone 0.4 mg VIAL 0.4 mg/ml 1 ml VIAL IV PRN (10:15)
[2022-08-11] MEDS ORDERED: HYDROmorphone 1 MG/1 ML SYRINGE IV PRN (10:15)
[2022-08-11] MEDS ORDERED: Prochlorperazine 5 mg/ml 2 ml VIAL (10 mg) IV PRN (10:15)
[2022-08-11] MEDS ORDERED: Ondansetron 4 mg VIAL 2 MG/ML 2 ml VIAL IV PRN (11:08)
[2022-08-11] MEDS ORDERED: Magnesium Hydroxide LIQ 30 ML UDC PO PRN (11:08)
[2022-08-11] MEDS ORDERED: Morphine 2 MG/ML SYRINGE IV PRN (11:08)
[2022-08-11] MEDS ORDERED: Lactulose 30 ml UDC PO PRN (11:08)
[2022-08-11] MEDS ORDERED: Ondansetron ODT 4 mg TAB 4 MG TAB PO PRN (11:08)
[2022-08-11] MEDS ORDERED: hydrALAZINE 20 mg/ml 1 ML Vial IV IV SLOW PU ONE (11:44)
[2022-08-11] MEDS ORDERED: hydrALAZINE 20 mg/ml 1 ML Vial IV ONE (11:45)
[2022-08-11] MEDS: Lactated Ringers 1000 ml BAG 1,000 ML IV SCH ×2 (12:41→23:14)
[2022-08-11] MEDS: ceFAZolin 1 GM ADVAN 1 GM in NS 0.9% 50 ML 50 ML IVPB SCH (17:23)
[2022-08-11] MEDS ORDERED: CMCS:Alfuzosin ER 10 mg TAB.ER (NF) 10 MG TAB.ER PO SCH (21:00)
[2022-08-11] MEDS ORDERED: NS 0.9% 1000 ml BAG 1,000 ML IV ONE (21:50)
[2022-08-11 22:43] LABS: Hematocrit 36 % (42-52); Hemoglobin 11.8 g/dL (14.0-18.0)
[2022-08-11] MEDS: Magnesium Hydroxide LIQ 30 ML UDC PO SCH (22:59)
[2022-08-12 00:28] LABS: High Sensitivity Troponin 1 Hr 27 pg/mL (<20)
[2022-08-12] MEDS: ceFAZolin 1 GM ADVAN 1 GM in NS 0.9% 50 ML 50 ML IVPB SCH ×2 (01:20→09:46)
[2022-08-12 02:37] LABS: High Sensitivity Troponin 3 Hr 25 pg/mL (<20)
[2022-08-12 06:17] LABS: Hematocrit 35 % (42-52); Hemoglobin 11.3 g/dL (14.0-18.0); Mean Platelet Volume 7.3 fL (7.4-10.4); Platelet Count 144 10^3/uL (150-450)
[2022-08-12 06:23] LABS: INR 1.14 (0.89-1.11)
[2022-08-12 06:57] LABS: Calcium 8.5 mg/dL (8.6-10.3); eGFR CKD-EPI 26.4 (>60)
[2022-08-12] MEDS ORDERED: Vitamin THERAPEUTIC TAB PO SCH (09:00)
[2022-08-12] MEDS ORDERED: Enoxaparin 100 MG/ML SYR SUBCUT SCH (09:00)
[2022-08-12] MEDS: Magnesium Hydroxide LIQ 30 ML UDC PO SCH (09:46)
[2022-08-12 11:45] VITALS: BP 118/72
== END 2022-08-12 12:00 | disposition home or self-care (01) ==
LOC: SSU → INTOOBSV 06:40 → AA 06:40
PROVIDERS: ADMIT Orthopaedic Surgery Adult Reconstructive Orthopaedic Surgery; ATTEND Orthopaedic Surgery Adult Reconstructive Orthopaedic Surgery

== ENCOUNTER 2022-08-24 22:26 | Inpatient (IN) ==
[2022-08-24] MEDS ORDERED: NS 0.9% 1000 ml BAG 1,000 ML IV ONE (22:49)
[2022-08-24 22:51] LABS: ABS Eosinophils 0.1 10^3/ul (0-0.6); ABS Lymphocytes 1.1 10^3/ul (1.0-4.8); ABS Monocytes 0.7 10^3/ul (0-0.8); ABS Neutrophils 6.7 10^3/ul (1.5-7.7); Eosinophil % 1.3 %; Hematocrit 22 % (42-52); Hemoglobin 6.9 g/dL (14.0-18.0); Lymphocyte % 12.9 %; Mean Corpuscular HGB Conc 32 g/dL (31-36); Mean Corpuscular Hemoglobin 29 pg (27-31); Mean Corpuscular Volume 91 fL (80-94); Mean Platelet Volume 7.2 fL (7.4-10.4); Platelet Count 385 10^3/uL (150-450); Red Blood Count 2.38 10^6 /uL (4.18-5.48); Red Cell Distribution Width 15 % (10-15); White Blood Count 8.7 10^3/uL (3.5-10.8)
[2022-08-24] MEDS ORDERED: Phytonadione SUBCUT/IM Adult 10 MG/ML AMP (IM or SQ not preferred route) IM ONE (22:53)
[2022-08-24] MEDS ORDERED: NS 0.9% 1000 ml BAG 1,000 ML IV SCH (23:00)
[2022-08-24] MEDS ORDERED: Prothrombin Complex Conc. DOSE = Units Factor IX (nine) IV SLOW PU ONE (23:01)
[2022-08-24 23:04] LABS: Activated Partial Thrombo Time 33.2 seconds (26.0-38.0); INR 2.84 (0.89-1.11)
[2022-08-24 23:25] LABS: Albumin 2.5 g/dL (3.2-5.2); Globulin 2.4 g/dL (2-4); Total Bilirubin 0.7 mg/dL (0.2-1.0); Total Protein 4.9 g/dL (6.4-8.9); eGFR CKD-EPI 18.9 (>60)
[2022-08-24 23:29] LABS: Potassium 6.2 mmol/L (3.5-5.0)
[2022-08-24] MEDS ORDERED: Dextrose 50% Syringe 50 ml 25 GM/50 ML SYRINGE IV PUSH ONE (23:39)
[2022-08-24] MEDS ORDERED: CALCIUM GLUCONATE 1GM/50ML NS 1 GM/50 ML BAG IV ONE (23:40)
[2022-08-24] MEDS ORDERED: Sodium Polystyrene ORAL.SUSP 15 GM/60 ML BTL PO ONE (23:46)
[2022-08-25 00:15] LABS: Magnesium 1.8 mg/dL (1.9-2.7); Phosphorus 3.7 mg/dL (2.5-5.0)
[2022-08-25] MEDS ORDERED: Magnesium Sulfate 2 gm BAG 2 GM/50 ML BAG IVPB ONE (00:35)
[2022-08-25 02:21] LABS: Ferritin 342.3 ng/mL (24-336)
[2022-08-25] MEDS: Pantoprazole VIAL 40 MG VIAL IV SCH ×2 (02:51→08:02)
[2022-08-25 04:00] LABS: Calcium 8.3 mg/dL (8.6-10.3); eGFR CKD-EPI 19.6 (>60)
[2022-08-25 04:04] LABS: Potassium 5.7 mmol/L (3.5-5.0)
[2022-08-25 07:50] LABS: ABS Basophils 0.1 10^3/ul (0-0.2); ABS Eosinophils 0.1 10^3/ul (0-0.6); ABS Lymphocytes 1.2 10^3/ul (1.0-4.8); ABS Monocytes 0.6 10^3/ul (0-0.8); ABS Neutrophils 6.3 10^3/ul (1.5-7.7); Eosinophil % 0.9 %; Hematocrit 25 % (42-52); Hemoglobin 7.9 g/dL (14.0-18.0); Lymphocyte % 14.4 %; Mean Corpuscular HGB Conc 32 g/dL (31-36); Mean Corpuscular Hemoglobin 29 pg (27-31); Mean Corpuscular Volume 90 fL (80-94); Platelet Count 321 10^3/uL (150-450); Red Blood Count 2.72 10^6 /uL (4.18-5.48); Red Cell Distribution Width 15 % (10-15); White Blood Count 8.2 10^3/uL (3.5-10.8)
[2022-08-25 12:05] LABS: ABS Basophils 0.1 10^3/ul (0-0.2); ABS Eosinophils 0.1 10^3/ul (0-0.6); ABS Lymphocytes 1.3 10^3/ul (1.0-4.8); ABS Monocytes 0.6 10^3/ul (0-0.8); ABS Neutrophils 6.5 10^3/ul (1.5-7.7); Eosinophil % 1.2 %; Hematocrit 25 % (42-52); Hemoglobin 7.9 g/dL (14.0-18.0); Lymphocyte % 14.6 %; Mean Corpuscular HGB Conc 32 g/dL (31-36); Mean Corpuscular Hemoglobin 28 pg (27-31); Mean Corpuscular Volume 90 fL (80-94); Mean Platelet Volume 7.4 fL (7.4-10.4); Platelet Count 353 10^3/uL (150-450); Red Blood Count 2.77 10^6 /uL (4.18-5.48); Red Cell Distribution Width 14 % (10-15); White Blood Count 8.6 10^3/uL (3.5-10.8)
[2022-08-25 12:53] LABS: Blood Urea Nitrogen 82 mg/dL (6-24); CO2 Carbon Dioxide 18 mmol/L (22-32); Calcium 8.4 mg/dL (8.6-10.3); Glucose 103 mg/dL (70-100); Sodium 140 mmol/L (135-145); eGFR CKD-EPI 19.9 (>60)
[2022-08-25 13:05] LABS: Anion Gap 7 mmol/L (2-11); Chloride 115 mmol/L (101-111)
[2022-08-25] MEDS ORDERED: Dextrose 50% Syringe 50 ml 25 GM/50 ML SYRINGE IV PUSH ONE (14:59)
[2022-08-25] MEDS ORDERED: Midazolam 5 mg/5 ml VIAL 1 mg/ml 5 ml VIAL (5 mg) ONE (16:58)
[2022-08-25] MEDS ORDERED: fentaNYL 100 mcg/2 ml 50 MCG/ML VIAL ONE (16:58)
[2022-08-25 18:25] LABS: ABS Eosinophils 0.1 10^3/ul (0-0.6); ABS Lymphocytes 1.3 10^3/ul (1.0-4.8); ABS Monocytes 0.7 10^3/ul (0-0.8); Eosinophil % 1.8 %; Hematocrit 25 % (42-52); Hemoglobin 7.9 g/dL (14.0-18.0); Lymphocyte % 15.9 %; Mean Corpuscular HGB Conc 32 g/dL (31-36); Mean Corpuscular Hemoglobin 29 pg (27-31); Mean Corpuscular Volume 90 fL (80-94); Mean Platelet Volume 6.8 fL (7.4-10.4); Nucleated Red Blood Cells % 0.1; Platelet Count 334 10^3/uL (150-450); Red Blood Count 2.76 10^6 /uL (4.18-5.48); Red Cell Distribution Width 14 % (10-15); White Blood Count 8.2 10^3/uL (3.5-10.8)
[2022-08-25 19:05] LABS: Calcium 8.6 mg/dL (8.6-10.3); eGFR CKD-EPI 18.9 (>60)
[2022-08-25] MEDS: Pantoprazole 80 mg in NS BAG 80 MG/250 ML BAG IV SCH (20:01)
[2022-08-26] MEDS: Pantoprazole 80 mg in NS BAG 80 MG/250 ML BAG IV SCH ×2 (05:20→14:55)
[2022-08-26 06:24] LABS: ABS Eosinophils 0.2 10^3/ul (0-0.6); ABS Monocytes 0.6 10^3/ul (0-0.8); ABS Neutrophils 6.3 10^3/ul (1.5-7.7); Eosinophil % 2.1 %; Hematocrit 24 % (42-52); Hemoglobin 7.9 g/dL (14.0-18.0); Lymphocyte % 12.6 %; Mean Corpuscular HGB Conc 33 g/dL (31-36); Mean Corpuscular Hemoglobin 30 pg (27-31); Mean Corpuscular Volume 92 fL (80-94); Mean Platelet Volume 6.9 fL (7.4-10.4); Platelet Count 297 10^3/uL (150-450); Red Blood Count 2.64 10^6 /uL (4.18-5.48); Red Cell Distribution Width 15 % (10-15); White Blood Count 8.2 10^3/uL (3.5-10.8)
[2022-08-26 06:57] LABS: Albumin 2.6 g/dL (3.2-5.2); Calcium 8.9 mg/dL (8.6-10.3); Globulin 2.6 g/dL (2-4); Magnesium 2.2 mg/dL (1.9-2.7); Total Bilirubin 0.7 mg/dL (0.2-1.0); Total Protein 5.2 g/dL (6.4-8.9); eGFR CKD-EPI 18.1 (>60)
[2022-08-26 07:11] LABS: Potassium 5.4 mmol/L (3.5-5.0)
[2022-08-26] MEDS: SODIUM ZIRCONIUM CYCLOSILICATE 10 GM PACKET PO SCH ×2 (10:27→14:55)
[2022-08-26] MEDS: Heparin 5000 UNITS/ML 1 mL VIAL SUBCUT SCH ×2 (17:46→20:34)
[2022-08-26 19:12] LABS: Calcium 8.7 mg/dL (8.6-10.3); eGFR CKD-EPI 18.4 (>60)
[2022-08-27] MEDS: Pantoprazole 80 mg in NS BAG 80 MG/250 ML BAG IV SCH ×3 (01:45→21:15)
[2022-08-27] MEDS: Heparin 5000 UNITS/ML 1 mL VIAL SUBCUT SCH ×3 (05:45→21:13)
[2022-08-27 06:35] LABS: ABS Basophils 0.1 10^3/ul (0-0.2); ABS Eosinophils 0.1 10^3/ul (0-0.6); ABS Lymphocytes 0.7 10^3/ul (1.0-4.8); ABS Monocytes 0.7 10^3/ul (0-0.8); ABS Neutrophils 7.1 10^3/ul (1.5-7.7); Eosinophil % 1.1 %; Hematocrit 22 % (42-52); Hemoglobin 7.2 g/dL (14.0-18.0); Lymphocyte % 7.9 %; Mean Corpuscular HGB Conc 33 g/dL (31-36); Mean Corpuscular Hemoglobin 30 pg (27-31); Mean Corpuscular Volume 91 fL (80-94); Mean Platelet Volume 6.8 fL (7.4-10.4); Platelet Count 299 10^3/uL (150-450); Red Cell Distribution Width 15 % (10-15); White Blood Count 8.6 10^3/uL (3.5-10.8)
[2022-08-27 06:49] LABS: Calcium 8.8 mg/dL (8.6-10.3); Potassium 4.8 mmol/L (3.5-5.0); eGFR CKD-EPI 19.1 (>60)
[2022-08-27] MEDS ORDERED: NS 0.9% 500 ml BAG 500 ML IV ONE (13:28)
[2022-08-27] MEDS ORDERED: Heparin 2 UNITS/ML 1000 mls 1,000 ML IV ONE (14:39)
[2022-08-28] MEDS: Heparin 5000 UNITS/ML 1 mL VIAL SUBCUT SCH (05:52)
[2022-08-28 06:34] LABS: ABS Eosinophils 0.1 10^3/ul (0-0.6); ABS Lymphocytes 0.8 10^3/ul (1.0-4.8); ABS Monocytes 0.6 10^3/ul (0-0.8); ABS Neutrophils 5.5 10^3/ul (1.5-7.7); Eosinophil % 1.5 %; Hematocrit 21 % (42-52); Hemoglobin 6.8 g/dL (14.0-18.0); Lymphocyte % 10.7 %; Mean Corpuscular HGB Conc 33 g/dL (31-36); Mean Corpuscular Hemoglobin 30 pg (27-31); Mean Corpuscular Volume 91 fL (80-94); Platelet Count 289 10^3/uL (150-450); Red Blood Count 2.27 10^6 /uL (4.18-5.48); Red Cell Distribution Width 15 % (10-15)
[2022-08-28 06:55] LABS: Calcium 8.7 mg/dL (8.6-10.3); Potassium 4.7 mmol/L (3.5-5.0); eGFR CKD-EPI 18.9 (>60)
[2022-08-28] MEDS: Pantoprazole 80 mg in NS BAG 80 MG/250 ML BAG IV SCH ×2 (07:00→21:00)
[2022-08-28 18:56] LABS: Hematocrit 28 % (42-52); Hemoglobin 9.5 g/dL (14.0-18.0)
[2022-08-29 06:40] LABS: ABS Eosinophils 0.2 10^3/ul (0-0.6); ABS Lymphocytes 0.9 10^3/ul (1.0-4.8); ABS Monocytes 0.5 10^3/ul (0-0.8); ABS Neutrophils 5.2 10^3/ul (1.5-7.7); Eosinophil % 2.3 %; Hematocrit 28 % (42-52); Hemoglobin 9.4 g/dL (14.0-18.0); Lymphocyte % 13.8 %; Mean Corpuscular HGB Conc 34 g/dL (31-36); Mean Corpuscular Hemoglobin 31 pg (27-31); Mean Corpuscular Volume 90 fL (80-94); Mean Platelet Volume 6.8 fL (7.4-10.4); Platelet Count 281 10^3/uL (150-450); Red Blood Count 3.06 10^6 /uL (4.18-5.48); Red Cell Distribution Width 15 % (10-15); White Blood Count 6.9 10^3/uL (3.5-10.8)
[2022-08-29 07:13] LABS: Calcium 9.1 mg/dL (8.6-10.3); Potassium 4.8 mmol/L (3.5-5.0); eGFR CKD-EPI 18.7 (>60)
[2022-08-29 09:34] VITALS: BP 118/59
[2022-08-29 09:51] LABS: Activated Partial Thrombo Time 29.1 seconds (26.0-38.0); INR 1.11 (0.89-1.11)
[2022-08-29 13:17] LABS: LAC APTT 26 sec (25 - 37); LAC INR 1.3 (0.9-1.1); Prothrombin Time(LAC) 13.8 sec (9.4 - 12.5)
[2022-08-29 13:24] LABS: Thrombin Time (Bovine), P 21.1 sec
[2022-08-29 14:11] LABS: Protein C Activity 112 % (70 - 150)
[2022-08-29 15:49] LABS: Free Protein S Antigen 97 % (65 - 160)
[2022-08-30 11:58] LABS: Factor V Leiden Mutation Negative (Negative); Prothrombin 20210 Mutation Heterozygous (Negative)
== END 2022-08-29 11:20 | disposition home or self-care (01) | DRG 378 ==
LOC: ED 22:26 → EDHOLD 08-25 00:11 → SUATTDRO 08-25 00:11 → ICU 08-25 00:52 → SSU 08-25 21:57 → MEDTELE 08-25 22:01
PROVIDERS: ADMIT Internal Medicine; ATTEND Internal Medicine